=== PATIENT | male | born 1965 | race Caucasian/White ===

== ENCOUNTER 2019-07-25 04:19 | Inpatient (IN) | payer MEDICAID, OTHER ==
[~2019-07-25] VITALS: Ht 170.2 cm; Wt 164.6 kg
[2019-07-25 05:09] LABS: Basophils # (auto) 0.1 10 ^3/uL (0-0.2); Eosinophils # (auto) 0.6 10 ^3/uL (0-0.8); Mean Corpuscular Hgb Conc. 33.4 g/dL (32.0-36.0); Monocytes # (auto) 0.6 10 ^3/uL (0-1.3)
[2019-07-25 05:11] LABS: Hematocrit 49.7 % (41.0-53.0); Hemoglobin 16.6 g/dL (13.5-17.5); Lymphocytes # (auto) 1.9 10 ^3/uL (0.4-5.4); Mean Corpuscular Hemoglobin 27.2 pg (28.0-32.0); Mean Corpuscular Volume 81.6 fL (80.0-100.0); Monocytes % (auto) 7.1 % (0.0-12.0); Neutrophils # (auto) 4.9 10 ^3/uL (1.6-8.6); Neutrophils % (auto) 60.9 % (37.0-80.0); Nucleated Red Blood Cells % 0.1 %; Platelet Count (auto) 229 10^3/uL (140-450); Red Cell Distribution Width 16.7 % (11.8-14.3); White Blood Cell 8.1 10^3/uL (4.4-10.8)
[2019-07-25] MEDS ORDERED: cloNIDine HCL 0.1 MG TAB PO ONE (05:15)
[2019-07-25 05:28] LABS: INR 1.14 (0.9-1.15); Partial Thromboplastin Time 29.5 sec (23.64-32.05)
[2019-07-25 05:46] LABS: Albumin 2.4 g/dL (3.4-5.0); Calcium 8.6 mg/dL (8.5-10.1); Magnesium 1.8 mg/dL (1.6-2.6); Potassium 3.7 mmol/L (3.5-5.1)
[2019-07-25 05:53] LABS: BUN/Creatinine Ratio 12.4; Bilirubin, Total 0.4 mg/dL (0.2-1.0); Total Protein 7.3 g/dL (6.4-8.2)
[2019-07-25] MEDS ORDERED: ENOXAPARIN SOD 150 MG/1 ML SYRINGE SC ONE (06:15)
[2019-07-25] MEDS ORDERED: IOHEXOL 350 MG/ML 100ML IJ ONE (07:36)
[2019-07-25] MEDS ORDERED: ACETAMINOPHEN 500 MG TAB PO PRN (10:00)
[2019-07-25] MEDS ORDERED: TEMAZEPAM 15 MG CAP PO PRN (10:00)
[2019-07-25] MEDS ORDERED: DEXTROSE (50%) 50ML SYRG IV PRN (10:00)
[2019-07-25] MEDS ORDERED: NITROGLYCERIN 0.4 MG SL TAB SL PRN (10:00)
[2019-07-25] MEDS ORDERED: MORPHINE SULF INJ 2 MG/ML SYRINGE 1ML IV PRN (10:00)
[2019-07-25] MEDS ORDERED: PROMETHAZINE HCL 25 MG/ML 1ML IV PRN (10:00)
[2019-07-25] MEDS ORDERED: ENALAPRIL MALEATE 10 MG TAB PO SCH (10:00)
[2019-07-25] MEDS ORDERED: LACTULOSE 20Gm/30ML SOLN PO PRN (10:00)
[2019-07-25] MEDS ORDERED: traMADol HCL 50 MG TAB PO PRN (10:00)
[2019-07-25] MEDS ORDERED: cefTRIAXone 1GM/50ML D5W 50 ML IV ONE (10:15)
[2019-07-25] MEDS: NITROGLYCERIN 0.2MG/HR TOPICAL PATCH TD SCH (10:27)
[2019-07-25] MEDS: ASPirin 81 mg TAB PO SCH (10:27)
[2019-07-25] MEDS: METOPROLOL TARTRATE 25 MG TAB PO SCH ×2 (10:27→22:19)
[2019-07-25] MEDS: ENOXAPARIN SOD 40 MG/0.4 ML SYRINGE SC SCH (10:27)
[2019-07-25] MEDS ORDERED: LEVOTHYROXINE SODIUM 25 MCG TAB PO ONE (10:45)
--- NOTE | 2019-07-25 11:06 | NUR ---
Telemetry admit from [facility] admitted to Telemetry unit after SBAR received from MARQUEZ Phan. Patient oriented to LULA CHAUDHARI RN primary RN, unit, room, bed, and unit policies regarding patient care and visiting hours. Patient now on continuous telemetry monitoring, tele box #77 and telemetry reading on arrival to unit is NSR @ 77bpm. Patient weighed by bedscale and encouraged to call if they need something. Bed in lowest/locked position, bed rails up x2, call light within reach. All questions and concerns addressed, patient verbalized understanding.
[2019-07-25 11:39] VITALS: BP 164/95
[2019-07-25] MEDS ORDERED: ENALAPRILAT 1.25 MG/ML-1ML VIAL IV ONE (12:00)
[2019-07-25] MEDS: InsuLIN REG 1unit/0.01ml Soln (100units/ml) SC SCH ×3 (12:17→21:52)
[2019-07-25] MEDS: ACCU-CHEK COMFORT CURVE STRIP VI SCH ×3 (12:18→21:47)
[2019-07-25] MEDS: SODIUM CHLOR 0.9% PF (SALINE LOCK) 10ML VIAL/SYR IV SCH ×2 (12:56→22:20)
[2019-07-25] MEDS: CLINDAMYCIN 600MG IV 50 ML IV SCH ×2 (12:56→22:19)
[2019-07-25 13:00] VITALS: BP 164/95
--- NOTE | 2019-07-25 13:10 | NUR ---
LAB MRSA SWAB SENT
[2019-07-25 17:00] VITALS: BP 145/103
[2019-07-25] MEDS ORDERED: LISINOPRIL 5 MG TAB PO ONE (18:00)
[2019-07-25 22:00] VITALS: BP 154/99
[2019-07-25] MEDS: ATORVASTATIN 20 MG TAB PO SCH (22:15)
--- NOTE | 2019-07-26 03:55 | NUR ---
PATIENT SLEEPING WELL.
[2019-07-26 05:00] VITALS: BP 158/95
[2019-07-26] MEDS: CLINDAMYCIN 600MG IV 50 ML IV SCH ×3 (05:26→21:15)
[2019-07-26] MEDS: SODIUM CHLOR 0.9% PF (SALINE LOCK) 10ML VIAL/SYR IV SCH ×3 (05:27→21:37)
[2019-07-26 05:34] LABS: Basophils # (auto) 0.1 10 ^3/uL (0-0.2); Eosinophils # (auto) 0.5 10 ^3/uL (0-0.8); Eosinophils % (auto) 6.7 % (0.0-7.0); Hematocrit 46.5 % (41.0-53.0); Hemoglobin 15.4 g/dL (13.5-17.5); Lymphocytes # (auto) 2.3 10 ^3/uL (0.4-5.4); Lymphocytes % (auto) 32.2 % (10.0-50.0); Mean Corpuscular Volume 81.6 fL (80.0-100.0); Monocytes # (auto) 0.6 10 ^3/uL (0-1.3); Monocytes % (auto) 8.4 % (0.0-12.0); Neutrophils # (auto) 3.7 10 ^3/uL (1.6-8.6); Neutrophils % (auto) 51.7 % (37.0-80.0); Nucleated Red Blood Cells % 0.1 %; Platelet Count (auto) 205 10^3/uL (140-450); Red Cell Distribution Width 16.5 % (11.8-14.3); White Blood Cell 7.2 10^3/uL (4.4-10.8)
[2019-07-26 05:55] LABS: Albumin 2.2 g/dL (3.4-5.0); Calcium 8.4 mg/dL (8.5-10.1); Potassium 3.7 mmol/L (3.5-5.1)
[2019-07-26 06:00] LABS: BUN/Creatinine Ratio 13.5; Bilirubin, Total 0.4 mg/dL (0.2-1.0); Total Protein 6.6 g/dL (6.4-8.2)
[2019-07-26] MEDS: LEVOTHYROXINE SODIUM 25 MCG TAB PO SCH (06:26)
[2019-07-26] MEDS: ACCU-CHEK COMFORT CURVE STRIP VI SCH ×4 (06:37→21:35)
[2019-07-26] MEDS: InsuLIN REG 1unit/0.01ml Soln (100units/ml) SC SCH ×4 (06:38→21:37)
--- NOTE | 2019-07-26 07:30 | NUR ---
Opening Shift Note Assumed care of patient, awake, alert, and oriented. No S/S of distress/SOB or pain. Bed in lowest/locked position, bed rails up x2, call light within reach. Instructed on POC and to call for assist PRN. Will continue to monitor for changes Q1hr and PRN.
[2019-07-26] MEDS ORDERED: ADENOSINE IV STA (08:29)
[2019-07-26] MEDS ORDERED: GIVE UN DILUTED IV STA (08:29)
[2019-07-26 09:00] VITALS: BP 166/93
[2019-07-26] MEDS: cefTRIAXone 1GM/50ML D5W 50 ML IV SCH (09:00)
[2019-07-26] MEDS: ENALAPRILAT 1.25 MG/ML-1ML VIAL IV PRN ×2 (09:40→17:11)
[2019-07-26] MEDS: NITROGLYCERIN 0.2MG/HR TOPICAL PATCH TD SCH (10:00)
[2019-07-26] MEDS ORDERED: LISINOPRIL 5 MG TAB PO SCH (10:00)
[2019-07-26] MEDS: METOPROLOL TARTRATE 25 MG TAB PO SCH ×2 (11:32→21:16)
[2019-07-26] MEDS: ENOXAPARIN SOD 40 MG/0.4 ML SYRINGE SC SCH (11:32)
[2019-07-26] MEDS: ASPirin 81 mg TAB PO SCH (11:32)
[2019-07-26] MEDS: SOD CHL 0.45% 1,000 ML IV SCH ×2 (11:48→23:50)
[2019-07-26 13:00] VITALS: BP 166/74
--- NOTE | 2019-07-26 13:20 | NUR ---
LAB URINE SAMPLE SENT TO LAB PER MD ORDERS
[2019-07-26 13:35] LABS: Urine Bacteria NONE SEEN /hpf (None Seen); Urine Blood TRACE /uL (Negative); Urine Specific Gravity 1.012 (1.001-1.035); Urine WBC 1 /hpf (0 - 3)
[2019-07-26 13:50] LABS: Alcohol, Urine < 3.0 mg/dL (0-5); Amphetamine Screen, Urine POSITIVE (NEGATIVE); Barbiturate Scree,Urine NEGATIVE (NEGATIVE); Benzodiazephine Screen, Urine NEGATIVE (NEGATIVE); Cannabinoid Screen, Urine NEGATIVE (NEGATIVE); Cocaine Screen, Urine NEGATIVE (NEGATIVE); Opiate Scree,Urine NEGATIVE (NEGATIVE); Phencyclidine Screen, Urine NEGATIVE (NEGATIVE)
[2019-07-26] MEDS ORDERED: OPTISON 3ml Vial for INJ IV ONE (14:55)
[2019-07-26 17:00] VITALS: BP 166/127
[2019-07-26] MEDS: cloNIDine HCL 0.1 MG TAB PO ONE ×2 (17:58→18:08)
--- NOTE | 2019-07-26 18:17 | NUR ---
BLOOD PRESSURE PATIENT B/P 166/127 AT 1700. MEDICATED PER MD ORDERS. REASSESSED PATIENT B/P 195/100. INFORMED MD, MEDICATED PER ORDER. WILL CONTINUE TO MONITOR
--- NOTE | 2019-07-26 18:19 | NUR ---
ULTRASOUND SPOKE WITH GAIL IN ULTRASOUND RE: PATIENT RENAL US. PER GAIL, PATIENT NEEDS TO BE NPO AND US TECH WILL BE BACK IN THE AM.
--- NOTE | 2019-07-26 18:46 | NUR ---
B/P REASSESS REASSESSMENT OF B/P 194/110. MD AWARE. PATIENT HAS RECEIVED BOTH PRN MEDS ORDERED. IV FLUIDS STOPPED. WILL CONTINUE TO MONITOR
--- NOTE | 2019-07-26 20:00 | NUR ---
Opening Shift Note Assumed care of patient, awake and alert. No S/S of distress/SOB or pain. Instructed on POC and to call for assist PRN, will continue to monitor for changes Q1hr and PRN.Requested gello for snack, given sugar free gello.
[2019-07-26] MEDS: ATORVASTATIN 20 MG TAB PO SCH (21:16)
[2019-07-26] MEDS: FLORASTOR (S. BOULARDII) 250 MG CAP PO SCH (21:34)
[2019-07-26 22:27] VITALS: BP 168/96
--- NOTE | 2019-07-27 01:09 | NUR ---
Complained of pain in the right foot and requested to removed the brown elastic dressing,said it caused him pain medicated with ultram 50mg.p.o for pain level of 5/10.
[2019-07-27 05:11] VITALS: BP 130/73
[2019-07-27] MEDS: CLINDAMYCIN 600MG IV 50 ML IV SCH ×3 (05:45→21:42)
[2019-07-27] MEDS: SODIUM CHLOR 0.9% PF (SALINE LOCK) 10ML VIAL/SYR IV SCH ×3 (05:45→21:46)
[2019-07-27] MEDS: ACCU-CHEK COMFORT CURVE STRIP VI SCH ×4 (05:46→21:47)
[2019-07-27] MEDS: InsuLIN REG 1unit/0.01ml Soln (100units/ml) SC SCH ×4 (05:46→21:48)
[2019-07-27] MEDS: LEVOTHYROXINE SODIUM 25 MCG TAB PO SCH (05:46)
[2019-07-27 06:01] LABS: Basophils # (auto) 0.1 10 ^3/uL (0-0.2); Basophils % (auto) 0.9 % (0.0-2.0); Eosinophils # (auto) 0.4 10 ^3/uL (0-0.8); Eosinophils % (auto) 7.3 % (0.0-7.0); Hematocrit 44.1 % (41.0-53.0); Hemoglobin 14.7 g/dL (13.5-17.5); Lymphocytes # (auto) 2.2 10 ^3/uL (0.4-5.4); Lymphocytes % (auto) 35.4 % (10.0-50.0); Mean Corpuscular Hemoglobin 27.2 pg (28.0-32.0); Mean Corpuscular Hgb Conc. 33.2 g/dL (32.0-36.0); Mean Corpuscular Volume 81.7 fL (80.0-100.0); Monocytes # (auto) 0.5 10 ^3/uL (0-1.3); Monocytes % (auto) 8.5 % (0.0-12.0); Neutrophils # (auto) 2.9 10 ^3/uL (1.6-8.6); Neutrophils % (auto) 47.9 % (37.0-80.0); Nucleated Red Blood Cells % 0.5 %; Platelet Count (auto) 197 10^3/uL (140-450); Red Cell Distribution Width 16.4 % (11.8-14.3); White Blood Cell 6.1 10^3/uL (4.4-10.8)
[2019-07-27 06:05] LABS: Albumin 2.2 g/dL (3.4-5.0); Calcium 8.3 mg/dL (8.5-10.1); Potassium 3.5 mmol/L (3.5-5.1)
[2019-07-27 06:07] LABS: BUN/Creatinine Ratio 16.5
[2019-07-27 06:10] LABS: Bilirubin, Total 0.3 mg/dL (0.2-1.0); Total Protein 6.2 g/dL (6.4-8.2)
--- NOTE | 2019-07-27 07:24 | NUR ---
Report given to Nasra Trevizo, patient is NPO for renal ultrasound.
--- NOTE | 2019-07-27 07:30 | NUR ---
RECEIVED REPORT FROM NIGHT NURSE. PATIENT RESTING IN BED, NO DISTRESS NOTED. PATIENT NPO FOR TEST. WILL CONTINUE TO MONITOR.
[2019-07-27 09:05] VITALS: BP 134/91
[2019-07-27] MEDS: NITROGLYCERIN 0.2MG/HR TOPICAL PATCH TD SCH (10:00)
[2019-07-27] MEDS: cefTRIAXone 1GM/50ML D5W 50 ML IV SCH (10:59)
[2019-07-27] MEDS: ASPirin 81 mg TAB PO SCH (10:59)
[2019-07-27] MEDS: FLORASTOR (S. BOULARDII) 250 MG CAP PO SCH ×2 (10:59→21:46)
[2019-07-27] MEDS: ENOXAPARIN SOD 40 MG/0.4 ML SYRINGE SC SCH (10:59)
[2019-07-27] MEDS: METOPROLOL TARTRATE 25 MG TAB PO SCH ×2 (11:00→21:46)
[2019-07-27] MEDS: ENALAPRIL MALEATE 10 MG TAB PO SCH (11:01)
[2019-07-27 13:00] VITALS: BP 190/91
[2019-07-27] MEDS ORDERED: LORazepam 2MG/ML-1ML VIAL IV ONE (15:15)
[2019-07-27 16:56] VITALS: BP 150/61
--- NOTE | 2019-07-27 19:15 | NUR ---
Opening Shift Note Assumed care of patient, awake, alert and oriented x4, even and unlabored respirations, no S/S of distress/SOB or pain. Patient is able to turn independently, bed in lowest locked position, side rails up x2, call light within reach. Instructed on POC and to call for assist PRN, will continue to monitor for changes Q1hr and PRN.
[2019-07-27 21:00] VITALS: BP 172/90
[2019-07-27] MEDS: ATORVASTATIN 20 MG TAB PO SCH (21:46)
[2019-07-27] MEDS: cloNIDine HCL 0.1 MG TAB PO PRN (21:50)
[2019-07-28 04:30] VITALS: BP 144/93
[2019-07-28 05:12] LABS: BUN/Creatinine Ratio 15.9; Calcium 8.3 mg/dL (8.5-10.1); Potassium 3.9 mmol/L (3.5-5.1)
[2019-07-28] MEDS: SODIUM CHLOR 0.9% PF (SALINE LOCK) 10ML VIAL/SYR IV SCH ×3 (06:08→22:36)
[2019-07-28] MEDS: CLINDAMYCIN 600MG IV 50 ML IV SCH ×3 (06:08→22:35)
[2019-07-28] MEDS: LEVOTHYROXINE SODIUM 25 MCG TAB PO SCH (06:58)
[2019-07-28] MEDS: InsuLIN REG 1unit/0.01ml Soln (100units/ml) SC SCH ×4 (06:58→22:37)
[2019-07-28] MEDS: ACCU-CHEK COMFORT CURVE STRIP VI SCH ×4 (06:58→22:36)
--- NOTE | 2019-07-28 07:30 | NUR ---
Opening Shift Note RECEIVED REPORT FROM NOC RN. Assumed care of patient, awake and alert. No S/S of distress/SOB or pain. BED IN LOWEST, LOCKED POSITION WITH SIDERAILS UP x2 AND CALL LIGHT WITHIN REACH. Instructed on POC and to call for assist PRN, will continue to monitor for changes Q1hr and PRN.
[2019-07-28] MEDS: cefTRIAXone 1GM/50ML D5W 50 ML IV SCH (08:30)
[2019-07-28 09:00] VITALS: BP 137/98
[2019-07-28] MEDS: NITROGLYCERIN 0.2MG/HR TOPICAL PATCH TD SCH (09:54)
[2019-07-28] MEDS: FLORASTOR (S. BOULARDII) 250 MG CAP PO SCH ×2 (09:55→22:35)
[2019-07-28] MEDS: ASPirin 81 mg TAB PO SCH (09:55)
[2019-07-28] MEDS: METOPROLOL TARTRATE 25 MG TAB PO SCH ×2 (09:56→22:36)
[2019-07-28] MEDS: ENALAPRIL MALEATE 10 MG TAB PO SCH (09:56)
[2019-07-28] MEDS: ENOXAPARIN SOD 40 MG/0.4 ML SYRINGE SC SCH (09:56)
[2019-07-28 13:00] VITALS: BP 123/94
[2019-07-28 16:50] VITALS: BP 129/108
--- NOTE | 2019-07-28 19:10 | NUR ---
Opening Shift Note Assumed care of patient, awake, alert and oriented x4, even and unlabored respirations on room air, no S/S of distress/SOB or pain. Patient able to turn independently, bed in lowest locked position, side rails up x2, and call light within reach. Instructed on POC and to call for assist PRN, will continue to monitor for changes Q1hr and PRN.
[2019-07-28] MEDS: cloNIDine HCL 0.1 MG TAB PO PRN (21:01)
[2019-07-28 22:23] VITALS: BP 211/97
[2019-07-28] MEDS: ATORVASTATIN 20 MG TAB PO SCH (22:36)
[2019-07-29] MEDS ORDERED: cloNIDine HCL 0.1 MG TAB PO ONE (00:30)
[2019-07-29] MEDS ORDERED: SODIUM CHLORIDE 0.9% 1,000 ML IV ONE ×2 (01:30→06:00)
[2019-07-29] MEDS: SODIUM CHLOR 0.9% PF (SALINE LOCK) 10ML VIAL/SYR IV SCH ×3 (05:30→23:56)
[2019-07-29] MEDS: CLINDAMYCIN 600MG IV 50 ML IV SCH ×3 (05:30→21:49)
[2019-07-29 05:52] VITALS: BP 157/89
[2019-07-29] MEDS: ACCU-CHEK COMFORT CURVE STRIP VI SCH ×4 (06:42→21:52)
[2019-07-29] MEDS: InsuLIN REG 1unit/0.01ml Soln (100units/ml) SC SCH ×4 (06:42→21:50)
[2019-07-29] MEDS: LEVOTHYROXINE SODIUM 25 MCG TAB PO SCH (06:42)
--- NOTE | 2019-07-29 08:05 | NUR ---
RECEIVED CALL FROM MOTOR COACH CHAUFFEUR (FLEX) PROCEDURE HAS BEEN CANCELLED DUE TO PT'S WEIGHT AND MOTOR COACH CHAUFFEUR BED LIMIT. PT MADE AWARE OF PLAN.
[2019-07-29 09:00] VITALS: BP 182/81
[2019-07-29] MEDS: METOPROLOL TARTRATE 25 MG TAB PO SCH ×2 (09:37→21:50)
[2019-07-29] MEDS: FLORASTOR (S. BOULARDII) 250 MG CAP PO SCH ×2 (09:38→21:49)
[2019-07-29] MEDS: ENALAPRIL MALEATE 10 MG TAB PO SCH (09:38)
[2019-07-29] MEDS: NITROGLYCERIN 0.2MG/HR TOPICAL PATCH TD SCH (09:38)
[2019-07-29] MEDS: cloNIDine HCL 0.1 MG TAB PO PRN ×2 (09:38→18:23)
[2019-07-29] MEDS: ASPirin 81 mg TAB PO SCH (09:39)
[2019-07-29] MEDS: cefTRIAXone 1GM/50ML D5W 50 ML IV SCH (09:39)
[2019-07-29] MEDS: ENOXAPARIN SOD 40 MG/0.4 ML SYRINGE SC SCH (09:40)
[2019-07-29 13:00] VITALS: BP 142/85
--- NOTE | 2019-07-29 14:25 | NUR ---
Faxed higher level of care transfer order to [facility].
--- NOTE | 2019-07-29 14:34 | NUR ---
NUTRITION ASSESSMENT NOTES Please refer to link notes of nutrition screen form filed under the intervention section of the plan of care for further details. Est. Energy Needs: 0122-9997 kcal (12-15 kcal/kg BW). Est. Protein Needs: 91-109 gms/day (1.0-1.2 gms/kg Adj.BW). Will continue to monitor pertinent labs and reassess nutrient need prn Addendum: 07/29/19 at [address] Amended: Links added.
--- NOTE | 2019-07-29 14:43 | NUR ---
I received a call from the [facility] Transfer center-provided them with additional clinical information as requested-she will give me a call back.
--- NOTE | 2019-07-29 15:06 | NUR ---
I spoke with patient's nurse Charlie, patient's abdominal girth is 41 inches.
--- NOTE | 2019-07-29 16:09 | NUR ---
CLARY FROM [facility] CALLED. QUESTIONS AND CONCERNS ADDRESSED. CLARY STATED SHE WILL FOLLOW UP.
[2019-07-29 16:57] VITALS: BP 182/94
--- NOTE | 2019-07-29 19:35 | NUR ---
Opening note pt A&Ox4. respirations are even and non labored on room air. pt denies pain or discomfort. bed in low locked position, call light within reach.
[2019-07-29 21:21] VITALS: BP 139/77
[2019-07-29] MEDS: ATORVASTATIN 20 MG TAB PO SCH (21:49)
[2019-07-30 05:37] VITALS: BP 134/75
[2019-07-30] MEDS: CLINDAMYCIN 600MG IV 50 ML IV SCH ×3 (05:43→21:21)
[2019-07-30] MEDS: LEVOTHYROXINE SODIUM 25 MCG TAB PO SCH (06:28)
[2019-07-30] MEDS: ACCU-CHEK COMFORT CURVE STRIP VI SCH ×4 (06:28→21:36)
[2019-07-30] MEDS: SODIUM CHLOR 0.9% PF (SALINE LOCK) 10ML VIAL/SYR IV SCH ×3 (06:29→21:25)
[2019-07-30] MEDS: InsuLIN REG 1unit/0.01ml Soln (100units/ml) SC SCH ×4 (06:29→21:36)
--- NOTE | 2019-07-30 07:15 | NUR ---
closing note pt resting in right lateral position. respirations are even and non labored on 2lnc. no s/s of pain or discomfort. bed is in low locked position, call light within reach.
--- NOTE | 2019-07-30 08:39 | NUR ---
I called [facility] Transfer Center [phone] and spoke with Waylon, he said they are not contracted with patient's insurance-they would need an AUGUSTIN to accept this patient. I called [facility] [phone] and left message for Harnessmaker Apprentice Mo asking for a list of contracted facilities and asking if they would do an AUGUSTIN with Adelina Gould-awaiting return call.
[2019-07-30 09:00] VITALS: BP 121/63
[2019-07-30] MEDS: FLORASTOR (S. BOULARDII) 250 MG CAP PO SCH ×2 (09:48→21:22)
[2019-07-30] MEDS: ENALAPRIL MALEATE 10 MG TAB PO SCH (09:48)
[2019-07-30] MEDS: cefTRIAXone 1GM/50ML D5W 50 ML IV SCH (09:48)
[2019-07-30] MEDS: ASPirin 81 mg TAB PO SCH (09:48)
[2019-07-30] MEDS: METOPROLOL TARTRATE 25 MG TAB PO SCH ×2 (09:49→21:34)
[2019-07-30] MEDS: ENOXAPARIN SOD 40 MG/0.4 ML SYRINGE SC SCH (09:49)
[2019-07-30] MEDS: NITROGLYCERIN 0.2MG/HR TOPICAL PATCH TD SCH (09:49)
--- NOTE | 2019-07-30 10:57 | NUR ---
I spoke with Dr. Chan regarding the plan of care for this patient-he requested that I reach out to [facility]. I called [facility] [phone] and spoke with material handling warehouse supervisor Natalie-she requested that I fax her clinical information-she will call me back to let me know if they can accommodate this patient. Faxed requested clinical information to [phone].
[2019-07-30] MEDS: SODIUM CHLORIDE 0.9% 1,000 ML IV SCH (11:31)
--- NOTE | 2019-07-30 11:53 | NUR ---
I spoke with [facility] Charter Pilot Mo ([phone]) regarding the transfer of this patient. Per Mo when there is an accepting facility, she will give authorization number for [facility]. Per Mo, they are contracted with [facility]-I let her know that I am waiting for them to call me back. She said they would be willing to do an AUGUSTIN for [facility] if [facility] is unable to accommodate the patient.
[2019-07-30 12:14] LABS: BUN/Creatinine Ratio 12.4; Potassium 4.1 mmol/L (3.5-5.1)
[2019-07-30 13:00] VITALS: BP 170/81
[2019-07-30] MEDS: cloNIDine HCL 0.1 MG TAB PO PRN ×3 (14:27→22:35)
--- NOTE | 2019-07-30 15:32 | NUR ---
assessment Patient is a 53 year old male who is alert and oriented. Prior to admission patient informed me he rented a room from a friend. Per patient he has a wheelchair for home use. Patient informed me his mother helps him at home when needed. Patient has no PCP. Coby Pascual to see patient for PCP. Patient is aware of his transfer order. Patient agrees to transfer. I informed patient he has a right to participate in any and all discharge planning. Patient does not have a POA and advanced directive. I have offered patient information on POA and advanced directives. I informed the patient the advantages and benefits of having an Advanced Directive. Patient verbalized understanding and agreed to discharge plan. Addendum: 07/30/19 at 1542 by Coby VERA Amended: Links added.
[2019-07-30 16:44] VITALS: BP 158/84
--- NOTE | 2019-07-30 20:00 | NUR ---
Opening Shift Note Assumed care of patient, awake and alert. No S/S of distress/SOB or pain. Instructed on POC and to call for assist PRN, will continue to monitor for changes Q1hr and PRN.Given gello sugar free as requested.
[2019-07-30] MEDS: ATORVASTATIN 20 MG TAB PO SCH (21:22)
[2019-07-30 22:00] VITALS: BP 160/80
--- NOTE | 2019-07-30 22:00 | NUR ---
Sara from [facility] called and asking if the patient still waiting for the transfer and said no bed available bed yet and case fitter to call tomorrow.
[2019-07-31] MEDS: SODIUM CHLORIDE 0.9% 1,000 ML IV SCH ×2 (00:05→13:40)
[2019-07-31 05:00] VITALS: BP 131/75
[2019-07-31] MEDS: CLINDAMYCIN 600MG IV 50 ML IV SCH ×2 (05:41→13:38)
[2019-07-31] MEDS: SODIUM CHLOR 0.9% PF (SALINE LOCK) 10ML VIAL/SYR IV SCH ×2 (05:41→14:35)
[2019-07-31] MEDS: LEVOTHYROXINE SODIUM 25 MCG TAB PO SCH (06:20)
[2019-07-31] MEDS: ACCU-CHEK COMFORT CURVE STRIP VI SCH ×2 (06:21→14:35)
[2019-07-31] MEDS: InsuLIN REG 1unit/0.01ml Soln (100units/ml) SC SCH ×2 (06:27→14:36)
--- NOTE | 2019-07-31 07:41 | NUR ---
Report given to Nasra Rubio, patient is resting no distress, awaiting transfer to high level of care, and told Nasra to tell the case hardener to call [facility] as per Sara from [facility].
--- NOTE | 2019-07-31 07:45 | NUR ---
Opening Shift Note Assumed care of patient, who is alert and oriented x4. No S/S of distress/SOB or pain. Bed is low, locked with 2x rails up. Call light is within reach. Instructed on POC and to call for assist PRN, will continue to monitor for changes Q1hr and PRN.
[2019-07-31 08:00] VITALS: BP 149/63
[2019-07-31] MEDS: cefTRIAXone 1GM/50ML D5W 50 ML IV SCH (09:09)
[2019-07-31] MEDS: ENOXAPARIN SOD 40 MG/0.4 ML SYRINGE SC SCH (09:12)
[2019-07-31] MEDS: NITROGLYCERIN 0.2MG/HR TOPICAL PATCH TD SCH (09:13)
[2019-07-31] MEDS: FLORASTOR (S. BOULARDII) 250 MG CAP PO SCH (09:14)
[2019-07-31] MEDS: ASPirin 81 mg TAB PO SCH (09:14)
[2019-07-31] MEDS: METOPROLOL TARTRATE 25 MG TAB PO SCH (09:15)
--- NOTE | 2019-07-31 09:25 | NUR ---
I called [facility] [phone] and spoke with warehouse delivery manager Natalie (no return call from her yesterday). Per Natalie she did not receive H&P on patient (it was faxed yesterday with confirmed receipt that fax went through). I re-faxed H&P and current MD progress notes to her as requested. I asked if they can accommodate patient's size/weight-she said "I don't know-I will have to get back to you". Also provided her with contact information for Dr. Chan and the nurse's station.
--- NOTE | 2019-07-31 09:35 | NUR ---
I spoke with Ramona at the [facility] Transfer Center, she said they are not able to accept this patient today-to check back tomorrow.
--- NOTE | 2019-07-31 09:39 | NUR ---
I called [facility] and spoke with Flying Squad Salesperson Brad to let her know that [facility] can not accept this patient today, and that [facility] can not give me a straight answer as to whether or not they can accommodate this patient. Per Brad, reach out to [facility] and [facility]-they will do an AUGUSTIN if necessary.
--- NOTE | 2019-07-31 09:50 | NUR ---
I called the [facility] Transfer Center [phone] and left a message asking if they can accommodate this patient.
[2019-07-31] MEDS ORDERED: ENALAPRIL MALEATE 10 MG TAB PO SCH (10:00)
--- NOTE | 2019-07-31 10:14 | NUR ---
I called the [facility] Transfer Center [phone] and spoke with Maged regarding this patient's need for transfer to higher level of care for heart cath. Per Maged, their cardiac cath table can hold up to 400 pounds. I provided him with contact information for Dr. Chan as well as the nurse's station. Faxed requested clinical documentation to [phone]. I let Maged know that [facility] is willing to do an AUGUSTIN.
--- NOTE | 2019-07-31 11:01 | NUR ---
I received a call from Gaby at the [facility]-provided her with requested contact information for Business Development Intern Brad at [facility] ([phone]).
--- NOTE | 2019-07-31 11:38 | NUR ---
I received a call from Maged at the [facility] Transfer Center-faxed him requested troponin trend from 07/24 and stress test report to [phone]. He said his MD spoke with Dr. Chan-he will give me a call back to let me know if they are accepting this patient-he said if they do accept, they may require that patient be tested for CO-VID 19 prior to transfer.
[2019-07-31 12:43] VITALS: BP 165/69
--- NOTE | 2019-07-31 13:54 | NUR ---
I received a call form Maged at the [facility] Transfer Center letting me know that they are declining this patient for transfer because their MD's do not think it is an urgent situation.
[2019-07-31 15:23] VITALS: BP 165/69
--- NOTE | 2019-07-31 16:29 | NUR ---
Discharge instructions given as ordered. Encourage to follow up with PMD as instructed. Provided patient with Dr. Arambula information to schedule a follow up appointment. Reinforced teaching on weight management in order for LHC to be done in 3-4 weeks. All questions and concerns addressed. Patient verbalized understanding. IV removed with catheter intact, pressure dressing applied. Telemetry unit returned to ICU. Patient taken to vehicle via wheelchair with all personal belongings, accompanied by staff. No distress noted at time of departure.
== END 2019-07-31 16:29 | disposition home or self-care (01) | DRG 190 ==
LOC: ER 04:19 → EEVIPCON 04:19 → TELE 04:20 → TELE-WESTW 11:12
PROVIDERS: ADMIT Internal Medicine; ATTEND Internal Medicine
DX: I21.4 Non-ST elevation (NSTEMI) myocardial infarction (principal); I50.31 Acute diastolic (congestive) heart failure; E11.51 Type 2 diabetes mellitus with diabetic peripheral angiopathy without gangrene; E11.621 Type 2 diabetes mellitus with foot ulcer; E66.01 Morbid (severe) obesity due to excess calories; L03.115 Cellulitis of right lower limb; E11.65 Type 2 diabetes mellitus with hyperglycemia; I16.1 Hypertensive emergency; I99.8 Other disorder of circulatory system; L40.9 Psoriasis, unspecified; I25.10 Atherosclerotic heart disease of native coronary artery without angina pectoris; I87.2 Venous insufficiency (chronic) (peripheral); E11.69 Type 2 diabetes mellitus with other specified complication; I13.0 Hypertensive heart and chronic kidney disease with heart failure and stage 1 through stage 4 chronic kidney disease, or unspecified chronic kidney disease; L03.116 Cellulitis of left lower limb; I16.0 Hypertensive urgency; L85.3 Xerosis cutis; M86.8X7 Other osteomyelitis, ankle and foot; L97.509 Non-pressure chronic ulcer of other part of unspecified foot with unspecified severity; N18.2 Chronic kidney disease, stage 2 (mild); Z68.43 Body mass index [BMI] 50.0-59.9, adult; Z59.0 Homelessness; Z79.01 Long term (current) use of anticoagulants; Z91.19 Patient's noncompliance with other medical treatment and regimen; Z79.84 Long term (current) use of oral hypoglycemic drugs; Z90.49 Acquired absence of other specified parts of digestive tract; Z79.899 Other long term (current) drug therapy
CPT/HCPCS: 36415; 71045; 73630; 75635; 78452; 80048; 80053; 80061; 80307; 81001; 82550; 82962; 83036; 83735; 83880; 84443; 84484; 85025; 85379; 85610; 85652; 85730; 87081; 93005; 93017; 93306; 93975; 96365; 96372; 99291; G0378; J0153; J0696; J1815; J3490; Q9956

== ENCOUNTER 2023-05-23 13:54 | Inpatient (IN) | payer MEDICAID ==
[~2023-05-23] VITALS: Ht 177.8 cm; Wt 135.0 kg
[2023-05-23] VITALS (12 sets, daily range): BP systolic 85–133; BP diastolic 30–75; PULSE 18–120; RESP 10–38; TEMP 98.5–103.3; O2SAT 93–97
[~2023-05-23 13:54] MED LIST: AUG875T PO
[2023-05-23 14:33] LABS: Base Excess -1.3 mmol/L (-2.0-2.0)
[2023-05-23] MEDS: PIPERACILLIN-TAZOB 3.375GM 100 ML IV ONE (14:37)
[2023-05-23] MEDS: NOREPINEPHRINE 8 MG/250ML KIT 250 ML IV ONE ×2 (15:05→22:14)
[2023-05-23 15:17] LABS: Basophils # (auto) 0 10 ^3/uL (0-0.2); Basophils % (auto) 0.2 % (0.0-2.0); Eosinophils # (auto) 0 10 ^3/uL (0-0.8); Hematocrit 30.1 % (41.0-53.0); Hemoglobin 9.8 g/dL (13.5-17.5); Lymphocytes # (auto) 0.2 10 ^3/uL (0.4-5.4); Lymphocytes % (auto) 3.1 % (10.0-50.0); Mean Corpuscular Hgb Conc. 32.7 g/dL (32.0-36.0); Mean Corpuscular Volume 91.7 fL (80.0-100.0); Monocytes # (auto) 0.3 10 ^3/uL (0-1.3); Monocytes % (auto) 4.3 % (0.0-12.0); Neutrophils # (auto) 7.1 10 ^3/uL (1.6-8.6); Neutrophils % (auto) 92.4 % (37.0-80.0); Red Blood Cells 3.28 10^6/uL (4.5-5.90); Red Cell Distribution Width 14.5 % (11.8-14.3); White Blood Cell 7.7 10^3/uL (4.4-10.8)
[2023-05-23] MEDS: ALBUTEROL SULF 2.5 MG/0.5ML(0.5%) NEB SOLN NEB ONE (15:17)
[2023-05-23] MEDS: IPRATROPIUM BROM 0.5 MG/2.5ML INH SOL NEB ONE (15:17)
[2023-05-23] MEDS: methylPREDNISolone SOD SUCC 125 MG/2 ML VL IV ONE (15:20)
[2023-05-23 15:34] LABS: Alanine Aminotransferase 29 U/L (7-40); Alkaline Phosphatase 78 U/L (46-116); Anion Gap 13 (5-15); BUN/Creatinine Ratio 9.4 (10.0-20.0); Carbon Dioxide 22 mmol/L (20-30); Chloride 97 mmol/L (98-107); Glucose 156 mg/dL (74-106); Magnesium 1.9 mg/dL (1.6-2.6); Potassium 5.2 mmol/L (3.5-5.1); Sodium 132 mmol/L (136-145)
[2023-05-23 15:35] LABS: Albumin 3.1 g/dL (3.2-4.8); Aspartate Aminotransferase 46 U/L (13-40); Total Protein 5.8 g/dL (5.7-8.2)
[2023-05-23 15:55] LABS: Blood Urea Nitrogen 96 mg/dL (9-23)
[2023-05-23 15:58] LABS: Lactic Acid w/Reflex 2.5 mmol/L (0.4-2.0)
[2023-05-23 16:39] LABS: Anisocytosis Slight; Platelet Estimate Decreased
[2023-05-23] MEDS ORDERED: ONDANSETRON HCL 4 MG/2 ML VIAL IV PRN (17:45)
[2023-05-23] MEDS ORDERED: SODIUM BICARB 8.4% 50Meq/50ml SYR INJ IV ONE (17:45)
[2023-05-23] MEDS ORDERED: MORPHINE SULFATE INJ 2 MG/ml SYRG IV PRN ×3 (17:45→18:00)
[2023-05-23] MEDS ORDERED: NITROGLYCERIN 0.4 MG SL TAB SL PRN ×2 (17:45→18:00)
[2023-05-23] MEDS ORDERED: ACETAMINOPHEN IV 1000 MG/100ML (10MG/ML) IV ONE (17:45)
[2023-05-23] MEDS ORDERED: CALCIUM GLUC 1,000mg/50ml-NS 50 ML IV ONE (17:45)
[2023-05-23] MEDS ORDERED: VASOPRESSIN 20 UNITS in SODIUM CHL 0.9% 99 ML IV SCH (17:45)
[2023-05-23] MEDS ORDERED: ALBUTEROL SULF 2.5 MG/0.5ML(0.5%) NEB SOLN NEB SCH (18:00)
[2023-05-23] MEDS ORDERED: IPRATROPIUM BROM 0.5 MG/2.5ML INH SOL NEB SCH (18:00)
[2023-05-23] MEDS ORDERED: SODIUM CHLORIDE 0.9% 500 ML IV ONE (18:15)
[2023-05-23] MEDS ORDERED: DEXTROSE (50%) 50ML SYRG IV PRN (18:30)
[2023-05-23] MEDS ORDERED: VANCOMYCIN PER PHARMACY 0 MG IV SCH (19:15)
[2023-05-23] MEDS: NOREPINEPHRINE 8 MG/250ML KIT 250 ML IV SCH (19:30)
[2023-05-23] MEDS ORDERED: LINEZOLID 600MG/300ML 300 ML IV SCH ×2 (20:00→22:00)
[2023-05-23] MEDS: VANCOMYCIN 1GM/200ML 200 ML IV ONE (20:01)
[2023-05-23] MEDS: VASOPRESSIN 20 UNITS in SODIUM CHL 0.9% 99 ML IV SCH (20:01)
[2023-05-23] MEDS: MIDAZOLAM DRIP 50 mg/50mL 50 ML IV SCH (20:01)
[2023-05-23] MEDS: ROCURONIUM 10MG/ML 10ML VIAL IV ONE ×2 (20:02)
[2023-05-23] MEDS: ETOMIDATE (2MG/ML) 20ML VIAL IV ONE ×2 (20:02)
[2023-05-23] MEDS: MIDAZOLAM DRIP 50 mg/50mL 50 ML IV ONE (20:02)
[2023-05-23] MEDS: CALCIUM GLUC 1,000mg/50ml-NS 50 ML IV ONE (20:25)
[2023-05-23] MEDS: SODIUM CHLORIDE 0.9% 500 ML IV ONE (20:33)
[2023-05-23] MEDS: SODIUM BICARB 8.4% 50Meq/50ml SYR INJ IV ONE (20:38)
[2023-05-23] MEDS: ACETAMINOPHEN IV 1000 MG/100ML (10MG/ML) IV ONE (20:51)
[2023-05-23 21:45] LABS: COVID19 ANTIGEN SOFIA FIA POSITIVE (NEGATIVE)
[2023-05-23] MEDS ORDERED: HEPARIN SODIUM (PORCINE) 5000 UNITS/ML 1ML VIAL SC SCH (22:00)
[2023-05-23] MEDS: CEFEPIME 1GM/ 50ML 50 ML IV SCH (22:14)
[2023-05-23 23:10] LABS: Basophils # (auto) 0 10 ^3/uL (0-0.2); Basophils % (auto) 0.4 % (0.0-2.0); Eosinophils # (auto) 0 10 ^3/uL (0-0.8); Eosinophils % (auto) 0.5 % (0.0-7.0); Hemoglobin 9.7 g/dL (13.5-17.5); Lymphocytes # (auto) 0.5 10 ^3/uL (0.4-5.4); Lymphocytes % (auto) 4.9 % (10.0-50.0); Mean Corpuscular Hemoglobin 29.6 pg (28.0-32.0); Mean Corpuscular Hgb Conc. 32.4 g/dL (32.0-36.0); Mean Corpuscular Volume 91.4 fL (80.0-100.0); Monocytes # (auto) 0.7 10 ^3/uL (0-1.3); Monocytes % (auto) 7.4 % (0.0-12.0); Neutrophils # (auto) 8.2 10 ^3/uL (1.6-8.6); Neutrophils % (auto) 86.8 % (37.0-80.0); Red Blood Cells 3.29 10^6/uL (4.5-5.90); Red Cell Distribution Width 14.5 % (11.8-14.3); White Blood Cell 9.4 10^3/uL (4.4-10.8)
[2023-05-23 23:17] LABS: Chloride 99 mmol/L (98-107); Potassium 5.5 mmol/L (3.5-5.1); Sodium 131 mmol/L (136-145)
[2023-05-23 23:18] LABS: Anion Gap 12 (5-15); Calcium 8.5 mg/dL (8.5-10.1); Carbon Dioxide 20 mmol/L (20-30)
[2023-05-23 23:23] LABS: BUN/Creatinine Ratio 8.5 (10.0-20.0)
[2023-05-23 23:32] LABS: Glucose 264 mg/dL (74-106)
[2023-05-23 23:34] LABS: Blood Urea Nitrogen 93 mg/dL (9-23)
[2023-05-23] MEDS: ACCU-CHEK COMFORT CURVE STRIP VI SCH (23:44)
[2023-05-23] MEDS: InsuLIN REG 1unit/0.01ml Soln (100units/ml) SC SCH (23:45)
[2023-05-24] VITALS (97 sets, daily range): BP systolic 89–147; BP diastolic 49–86; PULSE 62–89; RESP 10–25; TEMP 97.3–98.6; O2SAT 93–100
[2023-05-24] MEDS: IPRATROPIUM BROM 0.5 MG/2.5ML INH SOL NEB SCH (00:17)
[2023-05-24] MEDS: ALBUTEROL SULF 2.5 MG/0.5ML(0.5%) NEB SOLN NEB SCH (00:17)
[2023-05-24 04:06] LABS: Basophils # (auto) 0 10 ^3/uL (0-0.2); Basophils % (auto) 0.3 % (0.0-2.0); Eosinophils # (auto) 0 10 ^3/uL (0-0.8); Eosinophils % (auto) 0.1 % (0.0-7.0); Hematocrit 30.7 % (41.0-53.0); Hemoglobin 10.2 g/dL (13.5-17.5); Lymphocytes # (auto) 0.3 10 ^3/uL (0.4-5.4); Lymphocytes % (auto) 4.7 % (10.0-50.0); Mean Corpuscular Hemoglobin 30.5 pg (28.0-32.0); Mean Corpuscular Hgb Conc. 33.3 g/dL (32.0-36.0); Mean Corpuscular Volume 91.5 fL (80.0-100.0); Monocytes # (auto) 0.4 10 ^3/uL (0-1.3); Monocytes % (auto) 5.9 % (0.0-12.0); Neutrophils # (auto) 6.3 10 ^3/uL (1.6-8.6); Red Blood Cells 3.36 10^6/uL (4.5-5.90); Red Cell Distribution Width 14.9 % (11.8-14.3)
[2023-05-24 04:20] LABS: Alanine Aminotransferase 26 U/L (7-40); Albumin 3.3 g/dL (3.2-4.8); Alkaline Phosphatase 78 U/L (46-116); Anion Gap 14 (5-15); Aspartate Aminotransferase 37 U/L (13-40); BUN/Creatinine Ratio 8.9 (10.0-20.0); Calcium 8.3 mg/dL (8.7-10.4); Carbon Dioxide 19 mmol/L (20-30); Chloride 99 mmol/L (98-107); Glucose 284 mg/dL (74-106); Potassium 5.3 mmol/L (3.5-5.1); Sodium 132 mmol/L (136-145); Total Protein 6.3 g/dL (5.7-8.2)
[2023-05-24 04:28] LABS: Blood Urea Nitrogen 99 mg/dL (9-23)
[2023-05-24 04:34] LABS: % Iron Saturation 8.8 % (20-55)
[2023-05-24] MEDS: SODIUM CHL 0.9% 1000 ML BAG XX ONE (07:00)
[2023-05-24 09:23] LABS: INR 1.19 (0.9-1.15); Partial Thromboplastin Time 34.7 SEC (24.5-34.5); Prothrombin Time 12.4 sec (9.3-11.8)
[2023-05-24] MEDS ORDERED: CEFEPIME 1GM/ 50ML 50 ML IV SCH (10:00)
[2023-05-24] MEDS ORDERED: ENOXAPARIN SOD 30 MG/0.3 ML SYRINGE SC SCH ×2 (10:00)
[2023-05-24] MEDS: NOREPINEPHRINE 8 MG/250ML KIT 250 ML IV SCH (10:30)
[2023-05-24] MEDS: NOREPINEPHRINE 8 MG/250ML KIT 250 ML IV ONE (10:31)
[2023-05-24] MEDS: PANTOPRAZOLE 40 MG/10 ML VIAL INJ IV SCH (13:20)
[2023-05-24] MEDS: VANCOMYCIN 1GM/200ML 200 ML IV ONE (13:30)
[2023-05-24] MEDS: DexAMETHasone SOD PHOS 10MG/1ML VIAL INJ IV ONE (14:48)
[2023-05-24] MEDS: MUPIROCIN 2% OINT 15gm or 22gm FOR MRSA NARES EACHNOSTRI SCH (21:39)
[2023-05-24] MEDS: EPOETIN ALFA-EPBX 4,000 UNIT/ML VIAL SC ONE (21:39)
[2023-05-24] MEDS: MORPHINE SULFATE INJ 2 MG/ml SYRG IV PRN (23:20)
[2023-05-24] MEDS: ONDANSETRON HCL 4 MG/2 ML VIAL IV PRN (23:20)
[2023-05-25] VITALS (52 sets, daily range): BP systolic 108–137; BP diastolic 64–80; PULSE 69–107; RESP 8–21; TEMP 95.5–98.4; O2SAT 88–100
[2023-05-25 03:44] LABS: Basophils # (auto) 0 10 ^3/uL (0-0.2); Basophils % (auto) 0.2 % (0.0-2.0); Eosinophils # (auto) 0 10 ^3/uL (0-0.8); Hematocrit 30.2 % (41.0-53.0); Hemoglobin 9.9 g/dL (13.5-17.5); Lymphocytes # (auto) 0.3 10 ^3/uL (0.4-5.4); Lymphocytes % (auto) 3.5 % (10.0-50.0); Mean Corpuscular Hemoglobin 29.9 pg (28.0-32.0); Mean Corpuscular Hgb Conc. 32.9 g/dL (32.0-36.0); Mean Corpuscular Volume 90.9 fL (80.0-100.0); Monocytes # (auto) 0.8 10 ^3/uL (0-1.3); Monocytes % (auto) 9.7 % (0.0-12.0); Neutrophils # (auto) 7.1 10 ^3/uL (1.6-8.6); Neutrophils % (auto) 86.6 % (37.0-80.0); Red Blood Cells 3.32 10^6/uL (4.5-5.90); Red Cell Distribution Width 14.7 % (11.8-14.3); White Blood Cell 8.3 10^3/uL (4.4-10.8)
[2023-05-25 03:52] LABS: Chloride 100 mmol/L (98-107); Sodium 133 mmol/L (136-145)
[2023-05-25 03:53] LABS: Anion Gap 11 (5-15); Carbon Dioxide 22 mmol/L (20-30)
[2023-05-25 03:54] LABS: Calcium 8.3 mg/dL (8.5-10.1)
[2023-05-25 03:59] LABS: BUN/Creatinine Ratio 9.8 (10.0-20.0); Glucose 202 mg/dL (74-106)
[2023-05-25 04:06] LABS: Blood Urea Nitrogen 76 mg/dL (9-23)
[2023-05-25] MEDS: DexAMETHasone SOD PHOS 10MG/1ML VIAL INJ IV SCH (09:28)
[2023-05-25] MEDS: VANCOMYCIN 1GM/200ML 200 ML IV ONE (18:39)
[2023-05-26] VITALS (20 sets, daily range): BP systolic 122–165; BP diastolic 74–81; PULSE 78–118; RESP 12–20; TEMP 97.9–98.6; O2SAT 73–99
[2023-05-26 04:19] LABS: Hematocrit 27.7 % (41.0-53.0); Hemoglobin 9.3 g/dL (13.5-17.5); Mean Corpuscular Hemoglobin 30.2 pg (28.0-32.0); Mean Corpuscular Hgb Conc. 33.4 g/dL (32.0-36.0); Mean Corpuscular Volume 90.4 fL (80.0-100.0); Red Blood Cells 3.06 10^6/uL (4.5-5.90); Red Cell Distribution Width 14.6 % (11.8-14.3); White Blood Cell 8.7 10^3/uL (4.4-10.8)
[2023-05-26 04:31] LABS: Calcium 7.8 mg/dL (8.7-10.4); Chloride 98 mmol/L (98-107); Potassium 3.9 mmol/L (3.5-5.1); Sodium 134 mmol/L (136-145)
[2023-05-26 04:37] LABS: BUN/Creatinine Ratio 11.4 (10.0-20.0); Glucose 197 mg/dL (74-106)
[2023-05-26 04:40] LABS: Band Neutrophils % (manual) 0; Basophils % (manual) 0 (0.0-2.0); Blast Cells 0; Eosinophils % (manual) 0 (0-7); Metamyelocytes % 0; Promyelocytes % 0; Reactive Lymphocytes 0
[2023-05-26 05:24] LABS: Lymphocytes % (manual) 5 (10.0-50.0); Monocytes % (manual) 5 (0-12); Myelocytes % 1
[2023-05-26 05:25] LABS: Blood Urea Nitrogen 61 mg/dL (9-23); Platelet Estimate Decreased
[2023-05-26 05:34] LABS: Anion Gap 11 (5-15); Carbon Dioxide 25 mmol/L (20-30)
[2023-05-26 20:15] LABS: Triglycerides 205 mg/dL (< 150)
[2023-05-26 20:16] LABS: LDL Cholesterol 49 mg/dL (< 100)
[2023-05-26 20:17] LABS: Cholesterol 123 mg/dL (< 200); HDL Cholesterol 10 mg/dL (40-59)
[2023-05-26] MEDS: ATORVASTATIN 20 MG TAB PO SCH (21:36)
[2023-05-27] VITALS (15 sets, daily range): BP systolic 141–149; BP diastolic 81–89; PULSE 82–110; RESP 16–20; TEMP 97.6–98; O2SAT 90–99
[2023-05-27] MEDS: LORazepam 2MG/ML-1ML VIAL IV PRN (03:25)
[2023-05-27] MEDS: PANTOPRAZOLE 40 MG TAB PO ONE (11:20)
[2023-05-27] MEDS: DexAMETHasone 4 MG TAB PO ONE (12:49)
[2023-05-27 15:43] LABS: Basophils # (auto) 0 10 ^3/uL (0-0.2); Basophils % (auto) 0.3 % (0.0-2.0); Eosinophils # (auto) 0 10 ^3/uL (0-0.8); Eosinophils % (auto) 0.1 % (0.0-7.0); Hematocrit 31.3 % (41.0-53.0); Hemoglobin 10.1 g/dL (13.5-17.5); Lymphocytes # (auto) 0.5 10 ^3/uL (0.4-5.4); Lymphocytes % (auto) 4.1 % (10.0-50.0); Mean Corpuscular Hemoglobin 29.2 pg (28.0-32.0); Mean Corpuscular Hgb Conc. 32.2 g/dL (32.0-36.0); Mean Corpuscular Volume 90.7 fL (80.0-100.0); Monocytes # (auto) 0.8 10 ^3/uL (0-1.3); Monocytes % (auto) 7.2 % (0.0-12.0); Neutrophils # (auto) 9.8 10 ^3/uL (1.6-8.6); Neutrophils % (auto) 88.3 % (37.0-80.0); Red Blood Cells 3.46 10^6/uL (4.5-5.90); Red Cell Distribution Width 14.9 % (11.8-14.3); White Blood Cell 11.1 10^3/uL (4.4-10.8)
[2023-05-27 15:56] LABS: Anion Gap 10 (5-15); Carbon Dioxide 24 mmol/L (20-30); Chloride 98 mmol/L (98-107); Potassium 4.1 mmol/L (3.5-5.1); Sodium 132 mmol/L (136-145)
[2023-05-27 15:57] LABS: Calcium 7.8 mg/dL (8.7-10.4)
[2023-05-27 16:02] LABS: BUN/Creatinine Ratio 14.5 (10.0-20.0); Glucose 188 mg/dL (74-106)
[2023-05-27 16:04] LABS: Blood Urea Nitrogen 74 mg/dL (9-23)
[2023-05-27] MEDS: ACETAMINOPHEN 325 MG TAB PO PRN (16:56)
[2023-05-28] VITALS (15 sets, daily range): BP systolic 120–177; BP diastolic 78–99; PULSE 57–104; RESP 16–21; TEMP 97.8–98; O2SAT 95–100
[2023-05-28 06:21] LABS: Basophils # (auto) 0 10 ^3/uL (0-0.2); Basophils % (auto) 0.2 % (0.0-2.0); Eosinophils # (auto) 0 10 ^3/uL (0-0.8); Hematocrit 29.7 % (41.0-53.0); Hemoglobin 9.9 g/dL (13.5-17.5); Lymphocytes # (auto) 0.4 10 ^3/uL (0.4-5.4); Lymphocytes % (auto) 3.8 % (10.0-50.0); Mean Corpuscular Hemoglobin 30.1 pg (28.0-32.0); Mean Corpuscular Hgb Conc. 33.3 g/dL (32.0-36.0); Mean Corpuscular Volume 90.5 fL (80.0-100.0); Monocytes # (auto) 0.6 10 ^3/uL (0-1.3); Monocytes % (auto) 6.5 % (0.0-12.0); Neutrophils # (auto) 8.2 10 ^3/uL (1.6-8.6); Neutrophils % (auto) 89.5 % (37.0-80.0); Red Blood Cells 3.28 10^6/uL (4.5-5.90); Red Cell Distribution Width 14.6 % (11.8-14.3); White Blood Cell 9.2 10^3/uL (4.4-10.8)
[2023-05-28 06:30] LABS: Chloride 97 mmol/L (98-107); Potassium 4.2 mmol/L (3.5-5.1); Sodium 131 mmol/L (136-145)
[2023-05-28 06:31] LABS: Anion Gap 11 (5-15); Carbon Dioxide 23 mmol/L (20-30)
[2023-05-28 06:32] LABS: Calcium 8.1 mg/dL (8.7-10.4); INR 1.29 (0.9-1.15); Partial Thromboplastin Time 35.7 SEC (24.5-34.5); Prothrombin Time 13.3 sec (9.3-11.8)
[2023-05-28 06:37] LABS: BUN/Creatinine Ratio 11.5 (10.0-20.0); Blood Urea Nitrogen 66 mg/dL (9-23); Glucose 219 mg/dL (74-106)
[2023-05-28] MEDS: PANTOPRAZOLE 40 MG TAB PO SCH (10:32)
[2023-05-28] MEDS: LORazepam 2MG/ML-1ML VIAL IM PRN (10:34)
[2023-05-28] MEDS: LIDOCAINE W/ EPINEPHRINE 1% 20ML VIAL ONE (11:10)
[2023-05-28] MEDS: DexAMETHasone 4 MG TAB PO SCH (17:19)
[2023-05-29] VITALS (16 sets, daily range): BP systolic 149–165; BP diastolic 88–98; PULSE 80–97; RESP 16–21; TEMP 97.3–98; O2SAT 95–100
[2023-05-29 06:54] LABS: Basophils # (auto) 0 10 ^3/uL (0-0.2); Basophils % (auto) 0.3 % (0.0-2.0); Eosinophils # (auto) 0 10 ^3/uL (0-0.8); Eosinophils % (auto) 0.2 % (0.0-7.0); Hemoglobin 9.2 g/dL (13.5-17.5); Lymphocytes # (auto) 0.3 10 ^3/uL (0.4-5.4); Lymphocytes % (auto) 3.5 % (10.0-50.0); Mean Corpuscular Hemoglobin 30.1 pg (28.0-32.0); Mean Corpuscular Volume 91.3 fL (80.0-100.0); Monocytes # (auto) 0.7 10 ^3/uL (0-1.3); Monocytes % (auto) 7.6 % (0.0-12.0); Neutrophils # (auto) 8.3 10 ^3/uL (1.6-8.6); Neutrophils % (auto) 88.4 % (37.0-80.0); Red Blood Cells 3.07 10^6/uL (4.5-5.90); Red Cell Distribution Width 14.5 % (11.8-14.3); White Blood Cell 9.4 10^3/uL (4.4-10.8)
[2023-05-29 07:13] LABS: Chloride 98 mmol/L (98-107); Potassium 4.6 mmol/L (3.5-5.1); Sodium 131 mmol/L (136-145)
[2023-05-29 07:14] LABS: Anion Gap 11 (5-15); Carbon Dioxide 22 mmol/L (20-30)
[2023-05-29 07:15] LABS: Calcium 7.9 mg/dL (8.5-10.1)
[2023-05-29 07:19] LABS: Glucose 184 mg/dL (74-106)
[2023-05-29 07:27] LABS: Blood Urea Nitrogen 103 mg/dL (9-23)
[2023-05-29] MEDS: SODIUM CHL 0.9% 1000 ML BAG XX ONE ×2 (07:36→07:37)
[2023-05-29] MEDS: IOHEXOL 300 MG/ML 100ML BOTTLE IJ ONE (07:37)
[2023-05-29 09:20] LABS: Hepatitis B Surface Antibody Negative (Negative)
[2023-05-29 09:27] LABS: Hepatitis B Surface Antigen Negative (Negative)
[2023-05-29] MEDS: METOPROLOL SUCCINATE XL 50 MG TAB PO SCH (21:44)
[2023-05-29] MEDS: hydrALAZINE HCL 10 MG TAB PO PRN (23:20)
[2023-05-30] VITALS (12 sets, daily range): BP systolic 143–167; BP diastolic 81–87; PULSE 79–109; RESP 16–20; TEMP 97–97.8; O2SAT 92–97
[2023-05-30 14:23] LABS: Basophils # (auto) 0.1 10 ^3/uL (0-0.2); Basophils % (auto) 0.5 % (0.0-2.0); Eosinophils # (auto) 0.1 10 ^3/uL (0-0.8); Eosinophils % (auto) 0.6 % (0.0-7.0); Hematocrit 30.3 % (41.0-53.0); Hemoglobin 9.7 g/dL (13.5-17.5); Lymphocytes # (auto) 0.4 10 ^3/uL (0.4-5.4); Lymphocytes % (auto) 3.1 % (10.0-50.0); Mean Corpuscular Hemoglobin 29.1 pg (28.0-32.0); Mean Corpuscular Volume 90.9 fL (80.0-100.0); Monocytes # (auto) 0.8 10 ^3/uL (0-1.3); Monocytes % (auto) 6.8 % (0.0-12.0); Neutrophils # (auto) 10.7 10 ^3/uL (1.6-8.6); Red Blood Cells 3.33 10^6/uL (4.5-5.90); Red Cell Distribution Width 14.7 % (11.8-14.3); White Blood Cell 12.1 10^3/uL (4.4-10.8)
[2023-05-30 14:25] LABS: Chloride 97 mmol/L (98-107); Potassium 4.8 mmol/L (3.5-5.1); Sodium 130 mmol/L (136-145)
[2023-05-30 14:26] LABS: Anion Gap 13 (5-15); Carbon Dioxide 20 mmol/L (20-30)
[2023-05-30 14:27] LABS: Calcium 7.6 mg/dL (8.5-10.1)
[2023-05-30 14:31] LABS: Glucose 161 mg/dL (74-106)
[2023-05-30 14:56] LABS: Blood Urea Nitrogen 117 mg/dL (9-23)
[2023-05-30] MEDS: LIDOCAINE 2%HCL (LOCAL ANESTH.) INJ 20ML MDV ONE (17:39)
[2023-05-30] MEDS: HEPARIN SODIUM (PORCINE) 5000 UNITS/ML 1ML VIAL ONE (17:39)
[2023-05-30] MEDS: fentaNYL CITRATE 100 MCG/2 ML VL ONE (17:39)
[2023-05-30] MEDS: SODIUM ZIRCONIUM CYCL 10 GM PAK PO ONE (18:58)
[2023-05-30] MEDS ORDERED: VANCOMYCIN 1GM/200ML 200 ML IV ONE (20:00)
[2023-05-30] MEDS: DAPTOmycin 500 MG in SODIUM CHL 0.9% 50 ML IV SCH (20:34)
[2023-05-30] MEDS: CEFTAROLINE 200 MG in SODIUM CHL 0.9% 100 ML IV SCH (21:40)
[2023-05-31] VITALS (15 sets, daily range): BP systolic 131–161; BP diastolic 69–91; PULSE 75–102; RESP 12–20; TEMP 97.5–98.9; O2SAT 92–100
[2023-05-31 05:26] LABS: Basophils # (auto) 0 10 ^3/uL (0-0.2); Basophils % (auto) 0.1 % (0.0-2.0); Eosinophils # (auto) 0 10 ^3/uL (0-0.8); Eosinophils % (auto) 0.2 % (0.0-7.0); Hematocrit 28.5 % (41.0-53.0); Hemoglobin 9.5 g/dL (13.5-17.5); Lymphocytes # (auto) 0.3 10 ^3/uL (0.4-5.4); Lymphocytes % (auto) 2.6 % (10.0-50.0); Mean Corpuscular Hemoglobin 29.9 pg (28.0-32.0); Mean Corpuscular Hgb Conc. 33.2 g/dL (32.0-36.0); Mean Corpuscular Volume 90.2 fL (80.0-100.0); Monocytes # (auto) 1.1 10 ^3/uL (0-1.3); Monocytes % (auto) 8.1 % (0.0-12.0); Neutrophils # (auto) 11.7 10 ^3/uL (1.6-8.6); Red Blood Cells 3.16 10^6/uL (4.5-5.90); Red Cell Distribution Width 14.7 % (11.8-14.3); White Blood Cell 13.1 10^3/uL (4.4-10.8)
[2023-05-31 05:35] LABS: Anion Gap 14 (5-15); Carbon Dioxide 19 mmol/L (20-30); Chloride 96 mmol/L (98-107); Potassium 4.9 mmol/L (3.5-5.1); Sodium 129 mmol/L (136-145)
[2023-05-31 05:36] LABS: Calcium 7.6 mg/dL (8.5-10.1)
[2023-05-31 05:41] LABS: BUN/Creatinine Ratio 11.5 (10.0-20.0); Glucose 166 mg/dL (74-106)
[2023-05-31 06:30] LABS: Blood Urea Nitrogen 95 mg/dL (9-23)
[2023-05-31] MEDS: IOHEXOL 300 MG/ML 100ML BOTTLE IJ ONE (08:06)
[2023-05-31] MEDS: SODIUM ZIRCONIUM CYCL 10 GM PAK PO ONE (15:00)
[2023-06-01] VITALS (17 sets, daily range): BP systolic 129–156; BP diastolic 69–91; PULSE 75–137; RESP 16–91; TEMP 97.5–99.4; O2SAT 92–99
[2023-06-01 06:19] LABS: Eosinophils # (auto) 0.1 10 ^3/uL (0-0.8); Eosinophils % (auto) 0.6 % (0.0-7.0)
[2023-06-01 06:29] LABS: Basophils # (auto) 0.1 10 ^3/uL (0-0.2); Basophils % (auto) 0.6 % (0.0-2.0); Hematocrit 28.5 % (41.0-53.0); Hemoglobin 8.8 g/dL (13.5-17.5); Lymphocytes # (auto) 0.3 10 ^3/uL (0.4-5.4); Lymphocytes % (auto) 2.8 % (10.0-50.0); Mean Corpuscular Hemoglobin 28.8 pg (28.0-32.0); Mean Corpuscular Hgb Conc. 30.9 g/dL (32.0-36.0); Mean Corpuscular Volume 93.2 fL (80.0-100.0); Monocytes # (auto) 1.3 10 ^3/uL (0-1.3); Monocytes % (auto) 11.2 % (0.0-12.0); Neutrophils # (auto) 9.6 10 ^3/uL (1.6-8.6); Neutrophils % (auto) 84.8 % (37.0-80.0); Red Blood Cells 3.06 10^6/uL (4.5-5.90); White Blood Cell 11.3 10^3/uL (4.4-10.8)
[2023-06-01 06:35] LABS: Chloride 97 mmol/L (98-107); Potassium 5.1 mmol/L (3.5-5.1); Sodium 128 mmol/L (136-145)
[2023-06-01 06:36] LABS: Anion Gap 14 (5-15); Calcium 7.5 mg/dL (8.5-10.1); Carbon Dioxide 17 mmol/L (20-30)
[2023-06-01 06:41] LABS: BUN/Creatinine Ratio 10.4 (10.0-20.0); Glucose 132 mg/dL (74-106)
[2023-06-01 06:46] LABS: Blood Urea Nitrogen 95 mg/dL (9-23)
[2023-06-01 14:16] LABS: Chloride 96 mmol/L (98-107); Potassium 5.3 mmol/L (3.5-5.1); Sodium 128 mmol/L (136-145)
[2023-06-01 14:17] LABS: Anion Gap 15 (5-15); Calcium 7.5 mg/dL (8.5-10.1); Carbon Dioxide 17 mmol/L (20-30)
[2023-06-01 14:22] LABS: BUN/Creatinine Ratio 11.3 (10.0-20.0); Glucose 133 mg/dL (74-106)
[2023-06-01 14:55] LABS: Blood Urea Nitrogen 104 mg/dL (9-23)
[2023-06-01] MEDS: SODIUM ZIRCONIUM CYCL 10 GM PAK PO ONE (15:15)
[2023-06-02] VITALS (15 sets, daily range): BP systolic 132–148; BP diastolic 74–82; PULSE 75–103; RESP 16–18; TEMP 97–98.3; O2SAT 92–99
[2023-06-02] MEDS: MORPHINE SULFATE INJ 2 MG/ml SYRG IV PRN (00:42)
[2023-06-02 06:40] LABS: Basophils # (auto) 0 10 ^3/uL (0-0.2); Basophils % (auto) 0.1 % (0.0-2.0); Eosinophils # (auto) 0.1 10 ^3/uL (0-0.8); Eosinophils % (auto) 0.6 % (0.0-7.0); Hematocrit 28.4 % (41.0-53.0); Hemoglobin 9.2 g/dL (13.5-17.5); Lymphocytes # (auto) 0.6 10 ^3/uL (0.4-5.4); Mean Corpuscular Hemoglobin 29.6 pg (28.0-32.0); Mean Corpuscular Hgb Conc. 32.5 g/dL (32.0-36.0); Monocytes % (auto) 9.2 % (0.0-12.0); Neutrophils # (auto) 9.5 10 ^3/uL (1.6-8.6); Neutrophils % (auto) 85.1 % (37.0-80.0); Red Blood Cells 3.12 10^6/uL (4.5-5.90); Red Cell Distribution Width 14.4 % (11.8-14.3); White Blood Cell 11.2 10^3/uL (4.4-10.8)
[2023-06-02] MEDS: SODIUM CHL 0.9% 1000 ML BAG XX ONE (07:00)
[2023-06-02] MEDS: SODIUM ZIRCONIUM CYCL 10 GM PAK PO PRN (09:03)
[2023-06-02] MEDS: DAPTOmycin 500 MG in SODIUM CHL 0.9% 50 ML IV SCH (18:19)
[2023-06-02] MEDS: EPOETIN ALFA-EPBX 10,000 UNIT/1ML VIAL SC ONE (21:27)
[2023-06-03] VITALS (16 sets, daily range): BP systolic 106–124; BP diastolic 51–66; PULSE 76–101; RESP 16–18; TEMP 97.5–98.1; O2SAT 90–99
[2023-06-03 05:17] LABS: Basophils # (auto) 0 10 ^3/uL (0-0.2); Basophils % (auto) 0.1 % (0.0-2.0); Eosinophils # (auto) 0.1 10 ^3/uL (0-0.8); Eosinophils % (auto) 0.6 % (0.0-7.0); Hematocrit 27.9 % (41.0-53.0); Hemoglobin 9.1 g/dL (13.5-17.5); Lymphocytes # (auto) 0.5 10 ^3/uL (0.4-5.4); Mean Corpuscular Hemoglobin 29.4 pg (28.0-32.0); Mean Corpuscular Hgb Conc. 32.5 g/dL (32.0-36.0); Mean Corpuscular Volume 90.3 fL (80.0-100.0); Monocytes # (auto) 1.1 10 ^3/uL (0-1.3); Monocytes % (auto) 8.3 % (0.0-12.0); Neutrophils # (auto) 11.3 10 ^3/uL (1.6-8.6); Red Blood Cells 3.09 10^6/uL (4.5-5.90); Red Cell Distribution Width 14.4 % (11.8-14.3)
[2023-06-03 05:25] LABS: Chloride 98 mmol/L (98-107); Potassium 4.7 mmol/L (3.5-5.1)
[2023-06-03 05:26] LABS: Anion Gap 12 (5-15); Calcium 7.2 mg/dL (8.7-10.4); Carbon Dioxide 23 mmol/L (20-30)
[2023-06-03 05:29] LABS: Sodium 133 mmol/L (136-145)
[2023-06-03 05:31] LABS: BUN/Creatinine Ratio 11.3 (10.0-20.0); Glucose 138 mg/dL (74-106)
[2023-06-03 05:44] LABS: Blood Urea Nitrogen 86 mg/dL (9-23)
[2023-06-04] VITALS (13 sets, daily range): BP systolic 118–142; BP diastolic 57–86; PULSE 80–98; RESP 16–20; TEMP 97.7–98.1; O2SAT 90–99
[2023-06-04 05:50] LABS: Anion Gap 13 (5-15); Carbon Dioxide 20 mmol/L (20-30); Chloride 97 mmol/L (98-107); Potassium 5.4 mmol/L (3.5-5.1); Sodium 130 mmol/L (136-145)
[2023-06-04 05:51] LABS: Calcium 7.5 mg/dL (8.7-10.4)
[2023-06-04 05:56] LABS: BUN/Creatinine Ratio 9.1 (10.0-20.0); Glucose 101 mg/dL (74-106)
[2023-06-04 06:01] LABS: Blood Urea Nitrogen 76 mg/dL (9-23)
[2023-06-04 06:13] LABS: Eosinophils # (auto) 0.1 10 ^3/uL (0-0.8); Eosinophils % (auto) 0.7 % (0.0-7.0); Hemoglobin 9.5 g/dL (13.5-17.5); Lymphocytes # (auto) 0.9 10 ^3/uL (0.4-5.4); Lymphocytes % (auto) 5.4 % (10.0-50.0)
[2023-06-04 06:17] LABS: Basophils # (auto) 0 10 ^3/uL (0-0.2); Basophils % (auto) 0.3 % (0.0-2.0); Hematocrit 31.2 % (41.0-53.0); Mean Corpuscular Hemoglobin 29.4 pg (28.0-32.0); Mean Corpuscular Hgb Conc. 30.4 g/dL (32.0-36.0); Mean Corpuscular Volume 96.6 fL (80.0-100.0); Monocytes # (auto) 1.3 10 ^3/uL (0-1.3); Monocytes % (auto) 7.8 % (0.0-12.0); Neutrophils # (auto) 13.9 10 ^3/uL (1.6-8.6); Neutrophils % (auto) 85.8 % (37.0-80.0); Nucleated Red Blood Cells % 0.1 %; Red Blood Cells 3.23 10^6/uL (4.5-5.90); Red Cell Distribution Width 15.7 % (11.8-14.3); White Blood Cell 16.2 10^3/uL (4.4-10.8)
[2023-06-04] MEDS: SODIUM CHL 0.9% 1000 ML BAG XX ONE (07:00)
[2023-06-04] MEDS: EPOETIN ALFA-EPBX 4,000 UNIT/ML VIAL SC ONE (21:00)
[2023-06-05] VITALS (10 sets, daily range): BP systolic 92–123; BP diastolic 62–65; PULSE 66–105; RESP 18–20; TEMP 98.1; O2SAT 86–99
[2023-06-05 07:00] LABS: Basophils # (auto) 0 10 ^3/uL (0-0.2); Eosinophils # (auto) 0.1 10 ^3/uL (0-0.8); Hemoglobin 8.1 g/dL (13.5-17.5)
[2023-06-05 07:01] LABS: Basophils % (auto) 0.3 % (0.0-2.0); Eosinophils % (auto) 0.5 % (0.0-7.0); Lymphocytes # (auto) 0.6 10 ^3/uL (0.4-5.4); Lymphocytes % (auto) 4.8 % (10.0-50.0); Mean Corpuscular Hemoglobin 29.6 pg (28.0-32.0); Mean Corpuscular Hgb Conc. 32.4 g/dL (32.0-36.0); Mean Corpuscular Volume 91.3 fL (80.0-100.0); Monocytes % (auto) 7.5 % (0.0-12.0); Neutrophils # (auto) 11.7 10 ^3/uL (1.6-8.6); Neutrophils % (auto) 86.9 % (37.0-80.0); Red Blood Cells 2.74 10^6/uL (4.5-5.90); Red Cell Distribution Width 14.2 % (11.8-14.3); White Blood Cell 13.5 10^3/uL (4.4-10.8)
[2023-06-05 07:11] LABS: Calcium 7.4 mg/dL (8.7-10.4); Chloride 98 mmol/L (98-107); Potassium 4.7 mmol/L (3.5-5.1); Sodium 133 mmol/L (136-145)
[2023-06-05 07:12] LABS: Anion Gap 11 (5-15); Carbon Dioxide 24 mmol/L (20-30)
[2023-06-05 07:17] LABS: BUN/Creatinine Ratio 9.1 (10.0-20.0); Glucose 122 mg/dL (74-106)
[2023-06-05 07:19] LABS: Blood Urea Nitrogen 57 mg/dL (9-23)
[2023-06-05] MEDS ORDERED: VANCOMYCIN PER PHARMACY 0 MG IV SCH (17:30)
[2023-06-05] MEDS: VANCOMYCIN 1GM/200ML 200 ML IV ONE (17:45)
[2023-06-06 07:17] VITALS: O2SAT 90
[2023-06-06 08:09] LABS: Eosinophils # (auto) 0.1 10 ^3/uL (0-0.8); Monocytes # (auto) 1.2 10 ^3/uL (0-1.3); Monocytes % (auto) 9.2 % (0.0-12.0); Red Cell Distribution Width 14.6 % (11.8-14.3)
[2023-06-06 08:11] LABS: Basophils # (auto) 0 10 ^3/uL (0-0.2); Basophils % (auto) 0.3 % (0.0-2.0); Eosinophils % (auto) 0.5 % (0.0-7.0); Hematocrit 24.8 % (41.0-53.0); Hemoglobin 8.1 g/dL (13.5-17.5); Lymphocytes % (auto) 7.4 % (10.0-50.0); Mean Corpuscular Hemoglobin 29.9 pg (28.0-32.0); Mean Corpuscular Hgb Conc. 32.5 g/dL (32.0-36.0); Mean Corpuscular Volume 92.1 fL (80.0-100.0); Neutrophils # (auto) 11.1 10 ^3/uL (1.6-8.6); Neutrophils % (auto) 82.6 % (37.0-80.0); White Blood Cell 13.5 10^3/uL (4.4-10.8)
[2023-06-06 08:15] LABS: Chloride 98 mmol/L (98-107); Potassium 4.9 mmol/L (3.5-5.1); Sodium 132 mmol/L (136-145)
[2023-06-06 08:16] LABS: Anion Gap 11 (5-15); Carbon Dioxide 23 mmol/L (20-30)
[2023-06-06 08:17] LABS: Calcium 7.9 mg/dL (8.5-10.1)
[2023-06-06 08:21] LABS: Glucose 111 mg/dL (74-106)
[2023-06-06 08:30] VITALS: BP 162/78; PULSE 100; RESP 20; TEMP 98.1; O2SAT 94
[2023-06-06 08:51] LABS: Blood Urea Nitrogen 68 mg/dL (9-23)
[2023-06-06 10:00] VITALS: O2SAT 94
[2023-06-06] MEDS ORDERED: ALBUMIN 25% 100 ML IV PRN (12:45)
[2023-06-06] MEDS ORDERED: VANCOMYCIN 1GM/200ML 200 ML IV ONE (16:00)
[2023-06-06] MEDS: SODIUM CHL 0.9% 1000 ML BAG XX ONE (16:59)
[2023-06-06] MEDS: VANCOMYCIN 1GM/200ML 200 ML IV ONE (18:09)
[2023-06-06 20:00] VITALS: RESP 20
[2023-06-06 22:00] VITALS: BP 112/67; PULSE 95; RESP 17; TEMP 98.3; O2SAT 93
[2023-06-07] VITALS (7 sets, daily range): BP systolic 112–126; BP diastolic 61–74; PULSE 87–108; RESP 18–20; TEMP 98–98.4; O2SAT 91–96
[2023-06-07 06:36] LABS: Basophils # (auto) 0.1 10 ^3/uL (0-0.2); Basophils % (auto) 0.7 % (0.0-2.0); Eosinophils # (auto) 0.1 10 ^3/uL (0-0.8); Hemoglobin 7.9 g/dL (13.5-17.5); Lymphocytes # (auto) 1.1 10 ^3/uL (0.4-5.4); Lymphocytes % (auto) 9.5 % (10.0-50.0); White Blood Cell 11.3 10^3/uL (4.4-10.8)
[2023-06-07 06:38] LABS: Eosinophils % (auto) 0.8 % (0.0-7.0); Hematocrit 25.1 % (41.0-53.0); Mean Corpuscular Hemoglobin 29.4 pg (28.0-32.0); Mean Corpuscular Hgb Conc. 31.4 g/dL (32.0-36.0); Mean Corpuscular Volume 93.6 fL (80.0-100.0); Monocytes # (auto) 1.2 10 ^3/uL (0-1.3); Monocytes % (auto) 10.5 % (0.0-12.0); Neutrophils # (auto) 8.8 10 ^3/uL (1.6-8.6); Neutrophils % (auto) 78.5 % (37.0-80.0); Red Blood Cells 2.68 10^6/uL (4.5-5.90)
[2023-06-07 06:47] LABS: Chloride 100 mmol/L (98-107); Potassium 4.4 mmol/L (3.5-5.1); Sodium 136 mmol/L (136-145)
[2023-06-07 06:48] LABS: Anion Gap 12 (5-15); Carbon Dioxide 24 mmol/L (20-30)
[2023-06-07 06:53] LABS: BUN/Creatinine Ratio 7.2 (10.0-20.0); Glucose 99 mg/dL (74-106)
[2023-06-07 07:07] LABS: Blood Urea Nitrogen 42 mg/dL (9-23)
[2023-06-07] MEDS: VANCOMYCIN 1 GM/200 ML IV ONE (13:30)
[2023-06-08] VITALS (8 sets, daily range): BP systolic 101–163; BP diastolic 54–77; PULSE 87–106; RESP 18–22; TEMP 97.7–98.4; O2SAT 91–97
[2023-06-08 10:14] LABS: Chloride 97 mmol/L (98-107); Potassium 4.5 mmol/L (3.5-5.1); Sodium 133 mmol/L (136-145)
[2023-06-08 10:15] LABS: Anion Gap 13 (5-15); Carbon Dioxide 23 mmol/L (20-30)
[2023-06-08 10:16] LABS: Calcium 7.6 mg/dL (8.5-10.1)
[2023-06-08 10:20] LABS: BUN/Creatinine Ratio 9.2 (10.0-20.0); Glucose 121 mg/dL (74-106)
[2023-06-08 10:31] LABS: Basophils # (auto) 0.1 10 ^3/uL (0-0.2); Blood Urea Nitrogen 68 mg/dL (9-23); Eosinophils # (auto) 0.1 10 ^3/uL (0-0.8); Eosinophils % (auto) 1.1 % (0.0-7.0); Mean Corpuscular Hemoglobin 29.4 pg (28.0-32.0); Monocytes # (auto) 1.2 10 ^3/uL (0-1.3); Neutrophils # (auto) 10.6 10 ^3/uL (1.6-8.6)
[2023-06-08 10:32] LABS: Hemoglobin 7.2 g/dL (13.5-17.5); Lymphocytes # (auto) 1.2 10 ^3/uL (0.4-5.4); Lymphocytes % (auto) 8.7 % (10.0-50.0); Mean Corpuscular Hgb Conc. 31.5 g/dL (32.0-36.0); Mean Corpuscular Volume 93.5 fL (80.0-100.0); Monocytes % (auto) 9.1 % (0.0-12.0); Neutrophils % (auto) 80.1 % (37.0-80.0); Nucleated Red Blood Cells % 0.1 %; Red Blood Cells 2.46 10^6/uL (4.5-5.90); Red Cell Distribution Width 15.1 % (11.8-14.3); White Blood Cell 13.3 10^3/uL (4.4-10.8)
[2023-06-08] MEDS: IOHEXOL 300 MG/ML 100ML BOTTLE IJ ONE (15:55)
[2023-06-08] MEDS: EPOETIN ALFA-EPBX 10,000 UNIT/1ML VIAL SC ONE (21:00)
[2023-06-09 05:25] LABS: Basophils # (auto) 0.1 10 ^3/uL (0-0.2); Eosinophils # (auto) 0.1 10 ^3/uL (0-0.8); Hematocrit 25.5 % (41.0-53.0); Hemoglobin 8.2 g/dL (13.5-17.5); Lymphocytes % (auto) 8.8 % (10.0-50.0); Mean Corpuscular Hemoglobin 29.3 pg (28.0-32.0); Mean Corpuscular Hgb Conc. 32.1 g/dL (32.0-36.0); Mean Corpuscular Volume 91.4 fL (80.0-100.0); Monocytes # (auto) 1.2 10 ^3/uL (0-1.3); Monocytes % (auto) 10.8 % (0.0-12.0); Neutrophils # (auto) 8.9 10 ^3/uL (1.6-8.6); Neutrophils % (auto) 78.4 % (37.0-80.0); Red Blood Cells 2.79 10^6/uL (4.5-5.90); Red Cell Distribution Width 14.8 % (11.8-14.3); White Blood Cell 11.4 10^3/uL (4.4-10.8)
[2023-06-09 05:35] LABS: Anion Gap 11 (5-15); Carbon Dioxide 25 mmol/L (20-30); Chloride 97 mmol/L (98-107); Potassium 4.2 mmol/L (3.5-5.1); Sodium 133 mmol/L (136-145)
[2023-06-09 05:36] LABS: Calcium 8.1 mg/dL (8.5-10.1)
[2023-06-09 05:41] LABS: BUN/Creatinine Ratio 6.6 (10.0-20.0); Glucose 99 mg/dL (74-106)
[2023-06-09 05:48] LABS: Blood Urea Nitrogen 38 mg/dL (9-23)
[2023-06-09 08:30] VITALS: BP 153/73; PULSE 91; RESP 18; TEMP 97.5; O2SAT 92
[2023-06-09 10:00] VITALS: O2SAT 92
[2023-06-09 11:19] LABS: COVID19 ANTIGEN SOFIA FIA NEGATIVE (NEGATIVE)
[2023-06-09] MEDS: HYDROcodone-ACET 5/325MG TAB PO PRN (11:37)
[2023-06-09 12:40] VITALS: BP 132/69; PULSE 103; RESP 18; TEMP 98; O2SAT 97
[2023-06-09 16:57] VITALS: BP 111/65; PULSE 94; RESP 18; TEMP 98; O2SAT 97
[2023-06-09 20:00] VITALS: PULSE 84; RESP 16
[2023-06-09 22:00] VITALS: BP 119/76; PULSE 84; RESP 16; TEMP 97.8; O2SAT 97
[2023-06-10 05:00] VITALS: BP 136/74; PULSE 77; RESP 17; TEMP 97.8; O2SAT 96
[2023-06-10] MEDS: SODIUM CHL 0.9% 1000 ML BAG XX ONE (07:00)
[2023-06-10 09:00] VITALS: BP 146/80; PULSE 95; RESP 18; TEMP 98.2; O2SAT 98
[2023-06-10 09:56] LABS: Basophils # (auto) 0.1 10 ^3/uL (0-0.2); Basophils % (auto) 0.9 % (0.0-2.0); Monocytes # (auto) 1.1 10 ^3/uL (0-1.3); Monocytes % (auto) 11.4 % (0.0-12.0)
[2023-06-10 09:57] LABS: Eosinophils # (auto) 0.1 10 ^3/uL (0-0.8); Eosinophils % (auto) 1.5 % (0.0-7.0); Hematocrit 24.3 % (41.0-53.0); Lymphocytes % (auto) 10.3 % (10.0-50.0); Mean Corpuscular Hgb Conc. 32.9 g/dL (32.0-36.0); Mean Corpuscular Volume 91.3 fL (80.0-100.0); Neutrophils # (auto) 7.4 10 ^3/uL (1.6-8.6); Neutrophils % (auto) 75.9 % (37.0-80.0); Red Blood Cells 2.66 10^6/uL (4.5-5.90); Red Cell Distribution Width 14.7 % (11.8-14.3); White Blood Cell 9.7 10^3/uL (4.4-10.8)
[2023-06-10 10:00] VITALS: O2SAT 98
[2023-06-10 10:06] LABS: Chloride 97 mmol/L (98-107); Potassium 4.4 mmol/L (3.5-5.1); Sodium 131 mmol/L (136-145)
[2023-06-10 10:07] LABS: Anion Gap 10 (5-15); Calcium 7.6 mg/dL (8.7-10.4); Carbon Dioxide 24 mmol/L (20-30)
[2023-06-10 10:12] LABS: BUN/Creatinine Ratio 7.1 (10.0-20.0); Glucose 117 mg/dL (74-106)
[2023-06-10 10:15] LABS: Blood Urea Nitrogen 50 mg/dL (9-23)
[2023-06-10 20:00] VITALS: PULSE 65
[2023-06-10] MEDS: EPOETIN ALFA-EPBX 10,000 UNIT/1ML VIAL SC ONE (21:00)
[2023-06-10 22:00] VITALS: BP 107/73; PULSE 54; RESP 23; TEMP 98.4; O2SAT 92
[2023-06-11] VITALS (8 sets, daily range): BP systolic 110–171; BP diastolic 58–80; PULSE 70–111; RESP 16–23; TEMP 97.6–98.3; O2SAT 93–97
[2023-06-11 05:51] LABS: Chloride 96 mmol/L (98-107); Potassium 4.5 mmol/L (3.5-5.1); Sodium 130 mmol/L (136-145)
[2023-06-11 05:52] LABS: Anion Gap 12 (5-15); Carbon Dioxide 22 mmol/L (20-30)
[2023-06-11 05:53] LABS: Calcium 7.6 mg/dL (8.7-10.4)
[2023-06-11 05:55] LABS: Basophils # (auto) 0.1 10 ^3/uL (0-0.2); Basophils % (auto) 0.7 % (0.0-2.0); Eosinophils # (auto) 0.2 10 ^3/uL (0-0.8); Hematocrit 24.7 % (41.0-53.0); Lymphocytes # (auto) 1.2 10 ^3/uL (0.4-5.4); Mean Corpuscular Volume 90.3 fL (80.0-100.0); Monocytes # (auto) 1.3 10 ^3/uL (0-1.3); Neutrophils % (auto) 73.5 % (37.0-80.0)
[2023-06-11 05:57] LABS: Glucose 107 mg/dL (74-106); Lymphocytes % (auto) 11.4 % (10.0-50.0); Mean Corpuscular Hemoglobin 29.2 pg (28.0-32.0); Mean Corpuscular Hgb Conc. 32.3 g/dL (32.0-36.0); Monocytes % (auto) 12.4 % (0.0-12.0); Neutrophils # (auto) 7.5 10 ^3/uL (1.6-8.6); Red Blood Cells 2.73 10^6/uL (4.5-5.90); Red Cell Distribution Width 14.6 % (11.8-14.3); White Blood Cell 10.2 10^3/uL (4.4-10.8)
[2023-06-11 05:58] LABS: BUN/Creatinine Ratio 7.1 (10.0-20.0); Blood Urea Nitrogen 56 mg/dL (9-23)
[2023-06-11] MEDS: SODIUM CHL 0.9% 1000 ML BAG XX ONE (07:00)
[2023-06-11] MEDS: EPOETIN ALFA-EPBX 10,000 UNIT/1ML VIAL SC ONE (20:50)
[2023-06-12] VITALS (8 sets, daily range): BP systolic 125–157; BP diastolic 66–87; PULSE 94–105; RESP 17–20; TEMP 97.5–98.3; O2SAT 95–99
[2023-06-12 05:54] LABS: Basophils # (auto) 0.1 10 ^3/uL (0-0.2); Eosinophils # (auto) 0.2 10 ^3/uL (0-0.8); Hemoglobin 7.9 g/dL (13.5-17.5); Neutrophils # (auto) 5.6 10 ^3/uL (1.6-8.6)
[2023-06-12 05:58] LABS: Eosinophils % (auto) 2.6 % (0.0-7.0); Hematocrit 24.5 % (41.0-53.0); Lymphocytes # (auto) 0.9 10 ^3/uL (0.4-5.4); Lymphocytes % (auto) 11.3 % (10.0-50.0); Mean Corpuscular Hemoglobin 29.4 pg (28.0-32.0); Mean Corpuscular Hgb Conc. 32.4 g/dL (32.0-36.0); Mean Corpuscular Volume 90.7 fL (80.0-100.0); Monocytes # (auto) 1.2 10 ^3/uL (0-1.3); Monocytes % (auto) 14.8 % (0.0-12.0); Neutrophils % (auto) 70.3 % (37.0-80.0); Red Cell Distribution Width 14.8 % (11.8-14.3)
[2023-06-12 06:07] LABS: Anion Gap 10 (5-15); Carbon Dioxide 25 mmol/L (20-30); Chloride 98 mmol/L (98-107); Potassium 4.1 mmol/L (3.5-5.1); Sodium 133 mmol/L (136-145)
[2023-06-12 06:08] LABS: Calcium 7.9 mg/dL (8.7-10.4)
[2023-06-12 06:13] LABS: Albumin 2.6 g/dL (3.2-4.8); BUN/Creatinine Ratio 6.6 (10.0-20.0); Glucose 117 mg/dL (74-106)
[2023-06-12 06:15] LABS: Phosphorus 7.2 mg/dL (2.4-5.1)
[2023-06-12 06:37] LABS: Blood Urea Nitrogen 44 mg/dL (9-23)
[2023-06-13] VITALS (7 sets, daily range): BP systolic 116–142; BP diastolic 62–88; PULSE 61–98; RESP 17–20; TEMP 97.4–98; O2SAT 94–98
[2023-06-13 07:25] LABS: Basophils # (auto) 0.1 10 ^3/uL (0-0.2); Eosinophils # (auto) 0.3 10 ^3/uL (0-0.8); Eosinophils % (auto) 3.7 % (0.0-7.0); Hemoglobin 8.3 g/dL (13.5-17.5); Lymphocytes # (auto) 1.1 10 ^3/uL (0.4-5.4); Lymphocytes % (auto) 13.1 % (10.0-50.0); Mean Corpuscular Hemoglobin 29.7 pg (28.0-32.0); Monocytes # (auto) 1.2 10 ^3/uL (0-1.3)
[2023-06-13 07:28] LABS: Hematocrit 25.7 % (41.0-53.0); Mean Corpuscular Hgb Conc. 32.4 g/dL (32.0-36.0); Mean Corpuscular Volume 91.7 fL (80.0-100.0); Monocytes % (auto) 13.7 % (0.0-12.0); Neutrophils # (auto) 5.8 10 ^3/uL (1.6-8.6); Neutrophils % (auto) 68.5 % (37.0-80.0); Nucleated Red Blood Cells % 0.3 %; Red Cell Distribution Width 14.6 % (11.8-14.3); White Blood Cell 8.4 10^3/uL (4.4-10.8)
[2023-06-13 07:43] LABS: Anion Gap 10 (5-15); Carbon Dioxide 25 mmol/L (20-30); Chloride 96 mmol/L (98-107); Potassium 4.4 mmol/L (3.5-5.1); Sodium 131 mmol/L (136-145)
[2023-06-13 07:44] LABS: Calcium 8.2 mg/dL (8.5-10.1)
[2023-06-13 07:50] LABS: BUN/Creatinine Ratio 5.5 (10.0-20.0); Blood Urea Nitrogen 41 mg/dL (9-23); Glucose 102 mg/dL (74-106)
[2023-06-13] MEDS: VANCOMYCIN 1GM/200ML 200 ML IV ONE (17:15)
[2023-06-13] MEDS: EPOETIN ALFA-EPBX 10,000 UNIT/1ML VIAL SC ONE (22:02)
[2023-06-14] VITALS (7 sets, daily range): BP systolic 110–111; BP diastolic 59–71; PULSE 91–94; RESP 16–20; TEMP 97.7–98.1; O2SAT 95–100
[2023-06-14 06:22] LABS: Basophils # (auto) 0.1 10 ^3/uL (0-0.2); Basophils % (auto) 0.9 % (0.0-2.0); Eosinophils # (auto) 0.5 10 ^3/uL (0-0.8); Hematocrit 27.4 % (41.0-53.0); Lymphocytes # (auto) 1.1 10 ^3/uL (0.4-5.4); Mean Corpuscular Hemoglobin 29.2 pg (28.0-32.0); Mean Corpuscular Volume 100.6 fL (80.0-100.0); Monocytes # (auto) 1.3 10 ^3/uL (0-1.3); Monocytes % (auto) 14.1 % (0.0-12.0); Neutrophils # (auto) 6.4 10 ^3/uL (1.6-8.6); Red Blood Cells 2.72 10^6/uL (4.5-5.90); Red Cell Distribution Width 16.3 % (11.8-14.3); White Blood Cell 9.4 10^3/uL (4.4-10.8)
[2023-06-14 06:34] LABS: Calcium 7.1 mg/dL (8.7-10.4); Chloride 96 mmol/L (98-107); Potassium 5.1 mmol/L (3.5-5.1); Sodium 130 mmol/L (136-145)
[2023-06-14 06:35] LABS: Anion Gap 12 (5-15); Carbon Dioxide 22 mmol/L (20-30)
[2023-06-14 06:40] LABS: BUN/Creatinine Ratio 8.2 (10.0-20.0); Glucose 100 mg/dL (74-106)
[2023-06-14 06:41] LABS: Blood Urea Nitrogen 69 mg/dL (9-23)
[2023-06-15 05:28] LABS: Chloride 94 mmol/L (98-107); Potassium 4.6 mmol/L (3.5-5.1); Sodium 129 mmol/L (136-145)
[2023-06-15 05:29] LABS: Anion Gap 13 (5-15); Calcium 7.8 mg/dL (8.5-10.1); Carbon Dioxide 22 mmol/L (20-30)
[2023-06-15 05:30] LABS: Basophils # (auto) 0.1 10 ^3/uL (0-0.2); Basophils % (auto) 0.7 % (0.0-2.0); Eosinophils # (auto) 0.5 10 ^3/uL (0-0.8); Eosinophils % (auto) 5.4 % (0.0-7.0); Monocytes # (auto) 1.4 10 ^3/uL (0-1.3); Neutrophils % (auto) 67.2 % (37.0-80.0); Nucleated Red Blood Cells % 0.2 %; Red Blood Cells 2.73 10^6/uL (4.5-5.90)
[2023-06-15 05:32] LABS: Hematocrit 25.6 % (41.0-53.0); Hemoglobin 8.1 g/dL (13.5-17.5); Lymphocytes # (auto) 1.1 10 ^3/uL (0.4-5.4); Lymphocytes % (auto) 11.6 % (10.0-50.0); Mean Corpuscular Hemoglobin 29.8 pg (28.0-32.0); Mean Corpuscular Hgb Conc. 31.8 g/dL (32.0-36.0); Mean Corpuscular Volume 93.6 fL (80.0-100.0); Monocytes % (auto) 15.1 % (0.0-12.0); Neutrophils # (auto) 6.4 10 ^3/uL (1.6-8.6); Red Cell Distribution Width 15.4 % (11.8-14.3); White Blood Cell 9.6 10^3/uL (4.4-10.8)
[2023-06-15 05:34] LABS: BUN/Creatinine Ratio 6.1 (10.0-20.0); Glucose 120 mg/dL (74-106)
[2023-06-15 06:03] LABS: Blood Urea Nitrogen 56 mg/dL (9-23)
[2023-06-15 09:00] VITALS: BP 130/72; PULSE 103; RESP 18; TEMP 98.3; O2SAT 98
[2023-06-15 16:00] VITALS: BP 111/71; PULSE 95; RESP 20; TEMP 97.3; O2SAT 97
[2023-06-15 20:00] VITALS: RESP 17
[2023-06-15 21:50] VITALS: BP 98/100; PULSE 99; RESP 20; TEMP 98.1; O2SAT 92
[2023-06-16] VITALS (9 sets, daily range): BP systolic 123–157; BP diastolic 61–88; PULSE 88–109; RESP 18–22; TEMP 97.6–98.6; O2SAT 94–100
[2023-06-16 05:31] LABS: Basophils # (auto) 0.1 10 ^3/uL (0-0.2); Monocytes # (auto) 1.6 10 ^3/uL (0-1.3)
[2023-06-16 05:33] LABS: Basophils % (auto) 0.7 % (0.0-2.0); Eosinophils # (auto) 0.7 10 ^3/uL (0-0.8); Eosinophils % (auto) 7.5 % (0.0-7.0); Hematocrit 24.4 % (41.0-53.0); Hemoglobin 7.9 g/dL (13.5-17.5); Lymphocytes # (auto) 1.3 10 ^3/uL (0.4-5.4); Lymphocytes % (auto) 12.7 % (10.0-50.0); Mean Corpuscular Hemoglobin 29.5 pg (28.0-32.0); Mean Corpuscular Hgb Conc. 32.5 g/dL (32.0-36.0); Mean Corpuscular Volume 90.7 fL (80.0-100.0); Monocytes % (auto) 15.7 % (0.0-12.0); Neutrophils # (auto) 6.3 10 ^3/uL (1.6-8.6); Neutrophils % (auto) 63.4 % (37.0-80.0); Red Blood Cells 2.69 10^6/uL (4.5-5.90); Red Cell Distribution Width 15.1 % (11.8-14.3); White Blood Cell 9.9 10^3/uL (4.4-10.8)
[2023-06-16 05:58] LABS: Chloride 93 mmol/L (98-107); Potassium 4.8 mmol/L (3.5-5.1); Sodium 129 mmol/L (136-145)
[2023-06-16 05:59] LABS: Anion Gap 14 (5-15); Calcium 7.8 mg/dL (8.5-10.1); Carbon Dioxide 22 mmol/L (20-30)
[2023-06-16 06:04] LABS: BUN/Creatinine Ratio 6.3 (10.0-20.0); Blood Urea Nitrogen 62 mg/dL (9-23); Glucose 101 mg/dL (74-106)
[2023-06-16] MEDS: LINEZOLID 600MG/300ML 300 ML IV SCH (09:56)
[2023-06-17] VITALS (7 sets, daily range): BP systolic 102–134; BP diastolic 36–80; PULSE 102–111; RESP 16–22; TEMP 97.5–98.8; O2SAT 89–99
[2023-06-17 06:57] LABS: Basophils # (auto) 0.1 10 ^3/uL (0-0.2); Eosinophils # (auto) 0.9 10 ^3/uL (0-0.8); Hemoglobin 7.9 g/dL (13.5-17.5); Monocytes # (auto) 1.6 10 ^3/uL (0-1.3)
[2023-06-17 07:00] LABS: Eosinophils % (auto) 7.6 % (0.0-7.0); Hematocrit 25.7 % (41.0-53.0); Lymphocytes # (auto) 1.3 10 ^3/uL (0.4-5.4); Lymphocytes % (auto) 11.7 % (10.0-50.0); Mean Corpuscular Hemoglobin 28.8 pg (28.0-32.0); Mean Corpuscular Hgb Conc. 30.7 g/dL (32.0-36.0); Mean Corpuscular Volume 93.7 fL (80.0-100.0); Monocytes % (auto) 13.5 % (0.0-12.0); Neutrophils # (auto) 7.6 10 ^3/uL (1.6-8.6); Neutrophils % (auto) 66.2 % (37.0-80.0); Red Blood Cells 2.74 10^6/uL (4.5-5.90); Red Cell Distribution Width 15.7 % (11.8-14.3); White Blood Cell 11.5 10^3/uL (4.4-10.8)
[2023-06-17 07:01] LABS: Chloride 92 mmol/L (98-107); Potassium 5.1 mmol/L (3.5-5.1); Sodium 128 mmol/L (136-145)
[2023-06-17 07:02] LABS: Anion Gap 14 (5-15); Calcium 7.6 mg/dL (8.5-10.1); Carbon Dioxide 22 mmol/L (20-30)
[2023-06-17 07:07] LABS: BUN/Creatinine Ratio 7.6 (10.0-20.0); Glucose 99 mg/dL (74-106)
[2023-06-17 07:18] LABS: Blood Urea Nitrogen 80 mg/dL (9-23)
[2023-06-17] MEDS ORDERED: VANCOMYCIN PER PHARMACY 0 MG IV SCH (09:45)
[2023-06-17] MEDS: SODIUM CHL 0.9% 1000 ML BAG XX ONE (13:15)
[2023-06-17] MEDS: HYDROmorphone HCL 2 MG/ML VL/or syr IV ONE (14:10)
[2023-06-18] VITALS (8 sets, daily range): BP systolic 104–132; BP diastolic 53–65; PULSE 62–109; RESP 16–24; TEMP 97–97.9; O2SAT 90–98
[2023-06-18 05:43] LABS: Hemoglobin 7.7 g/dL (13.5-17.5); Red Cell Distribution Width 15.2 % (11.8-14.3)
[2023-06-18 05:44] LABS: Albumin 2.4 g/dL (3.2-4.8); Alkaline Phosphatase 103 U/L (46-116); Anion Gap 15 (5-15); BUN/Creatinine Ratio 7.1 (10.0-20.0); Blood Urea Nitrogen 78 mg/dL (9-23); Calcium 7.4 mg/dL (8.7-10.4); Carbon Dioxide 21 mmol/L (20-30); Chloride 93 mmol/L (98-107); Glucose 96 mg/dL (74-106); Potassium 5.1 mmol/L (3.5-5.1); Sodium 129 mmol/L (136-145)
[2023-06-18 05:45] LABS: Aspartate Aminotransferase 18 U/L (13-40); Bilirubin, Total 0.4 mg/dL (0.2-1.0); Total Protein 6.4 g/dL (5.7-8.2)
[2023-06-18 05:46] LABS: Hematocrit 24.5 % (41.0-53.0); Mean Corpuscular Hemoglobin 28.4 pg (28.0-32.0); Mean Corpuscular Hgb Conc. 31.2 g/dL (32.0-36.0)
[2023-06-18 05:50] LABS: Alanine Aminotransferase < 9 U/L (7-40)
[2023-06-18 06:00] LABS: Basophils % (manual) 0 (0.0-2.0); Metamyelocytes % 0; Myelocytes % 0; Promyelocytes % 0; Reactive Lymphocytes 0
[2023-06-18 13:55] LABS: Band Neutrophils % (manual) 1; Blast Cells 2; Eosinophils % (manual) 5 (0-7); Lymphocytes % (manual) 15 (10.0-50.0); Monocytes % (manual) 14 (0-12)
[2023-06-18 13:57] LABS: Platelet Estimate Adequate
[2023-06-19] VITALS (8 sets, daily range): BP systolic 114–128; BP diastolic 68–80; PULSE 96–107; RESP 16–24; TEMP 97.8–99.3; O2SAT 95–98
[2023-06-19 06:07] LABS: Anion Gap 16 (5-15); Carbon Dioxide 20 mmol/L (20-30); Chloride 93 mmol/L (98-107); Potassium 5.5 mmol/L (3.5-5.1); Sodium 129 mmol/L (136-145)
[2023-06-19 06:08] LABS: Calcium 7.5 mg/dL (8.5-10.1)
[2023-06-19 06:13] LABS: BUN/Creatinine Ratio 7.5 (10.0-20.0); Glucose 91 mg/dL (74-106)
[2023-06-19 06:29] LABS: Blood Urea Nitrogen 89 mg/dL (9-23)
[2023-06-20 05:00] VITALS: BP 112/64; PULSE 84; RESP 84; TEMP 96.2; O2SAT 97
[2023-06-20] MEDS ORDERED: VANCOMYCIN PER PHARMACY 0 MG IV SCH (07:00)
[2023-06-20] MEDS: SODIUM CHL 0.9% 1000 ML BAG XX ONE (07:00)
[2023-06-20 08:52] VITALS: BP 104/57; PULSE 87; RESP 17; TEMP 98.4; O2SAT 100
[2023-06-20 10:00] VITALS: O2SAT 91
[2023-06-20 10:22] LABS: Chloride 93 mmol/L (98-107); Sodium 129 mmol/L (136-145)
[2023-06-20 10:23] LABS: Anion Gap 15 (5-15); Carbon Dioxide 21 mmol/L (20-30)
[2023-06-20 10:24] LABS: Calcium 7.4 mg/dL (8.5-10.1)
[2023-06-20 10:28] LABS: Glucose 101 mg/dL (74-106)
[2023-06-20 10:29] LABS: BUN/Creatinine Ratio 6.7 (10.0-20.0)
[2023-06-20 10:33] LABS: Basophils # (auto) 0.1 10 ^3/uL (0-0.2); Lymphocytes # (auto) 1.5 10 ^3/uL (0.4-5.4); Lymphocytes % (auto) 9.3 % (10.0-50.0); Nucleated Red Blood Cells % 0.2 %; White Blood Cell 16.4 10^3/uL (4.4-10.8)
[2023-06-20 10:35] LABS: Basophils % (auto) 0.7 % (0.0-2.0); Eosinophils # (auto) 0.8 10 ^3/uL (0-0.8); Eosinophils % (auto) 4.9 % (0.0-7.0); Hematocrit 26.4 % (41.0-53.0); Hemoglobin 8.1 g/dL (13.5-17.5); Mean Corpuscular Hemoglobin 28.8 pg (28.0-32.0); Mean Corpuscular Hgb Conc. 30.7 g/dL (32.0-36.0); Mean Corpuscular Volume 93.9 fL (80.0-100.0); Monocytes # (auto) 1.9 10 ^3/uL (0-1.3); Monocytes % (auto) 11.9 % (0.0-12.0); Neutrophils % (auto) 73.2 % (37.0-80.0); Red Blood Cells 2.81 10^6/uL (4.5-5.90); Red Cell Distribution Width 16.4 % (11.8-14.3)
[2023-06-20 11:46] LABS: Blood Urea Nitrogen 86 mg/dL (9-23); Potassium 5.9 mmol/L (3.5-5.1)
[2023-06-20 13:00] VITALS: BP 122/86; PULSE 72; RESP 17; TEMP 98.4; O2SAT 91
[2023-06-20] MEDS: VANCOMYCIN 500 MG in D5W 5% 100 ML IV ONE (14:41)
[2023-06-20] MEDS: LIDOCAINE 2%HCL (LOCAL ANESTH.) INJ 20ML MDV ONE (15:57)
[2023-06-20] MEDS: HEPARIN SODIUM (PORCINE) 5000 UNITS/ML 1ML VIAL ONE (16:21)
[2023-06-20 20:00] VITALS: RESP 20; O2SAT 98
[2023-06-20 22:00] VITALS: BP 98/57; PULSE 118; RESP 20; TEMP 99.1; O2SAT 98
[2023-06-20] MEDS: EPOETIN ALFA-EPBX 10,000 UNIT/1ML VIAL SC ONE (22:08)
[2023-06-21 05:28] VITALS: BP 100/58; PULSE 109; RESP 20; TEMP 99; O2SAT 98
[2023-06-21 06:17] LABS: Basophils # (auto) 0.1 10 ^3/uL (0-0.2); Eosinophils # (auto) 0.3 10 ^3/uL (0-0.8); Hemoglobin 7.3 g/dL (13.5-17.5); Lymphocytes # (auto) 0.9 10 ^3/uL (0.4-5.4); Neutrophils # (auto) 13.9 10 ^3/uL (1.6-8.6)
[2023-06-21 06:18] LABS: Basophils % (auto) 0.4 % (0.0-2.0); Eosinophils % (auto) 1.9 % (0.0-7.0); Hematocrit 23.5 % (41.0-53.0); Lymphocytes % (auto) 5.2 % (10.0-50.0); Mean Corpuscular Hemoglobin 28.5 pg (28.0-32.0); Mean Corpuscular Hgb Conc. 31.2 g/dL (32.0-36.0); Mean Corpuscular Volume 91.4 fL (80.0-100.0); Monocytes # (auto) 1.6 10 ^3/uL (0-1.3); Monocytes % (auto) 9.3 % (0.0-12.0); Neutrophils % (auto) 83.2 % (37.0-80.0); Red Blood Cells 2.57 10^6/uL (4.5-5.90); Red Cell Distribution Width 15.7 % (11.8-14.3); White Blood Cell 16.7 10^3/uL (4.4-10.8)
[2023-06-21 06:20] LABS: Chloride 98 mmol/L (98-107); Potassium 4.6 mmol/L (3.5-5.1)
[2023-06-21 06:21] LABS: Anion Gap 12 (5-15); Calcium 7.5 mg/dL (8.5-10.1); Carbon Dioxide 25 mmol/L (20-30)
[2023-06-21 06:26] LABS: BUN/Creatinine Ratio 5.8 (10.0-20.0); Glucose 101 mg/dL (74-106)
[2023-06-21 06:28] LABS: Blood Urea Nitrogen 49 mg/dL (9-23); Sodium 135 mmol/L (136-145)
[2023-06-21] MEDS ORDERED: SODIUM CHL 0.9% 1000 ML BAG XX ONE (07:00)
[2023-06-21 08:30] VITALS: BP 106/60; PULSE 96; RESP 20; TEMP 98.9; O2SAT 96
[2023-06-21] MEDS: SODIUM CHL 0.9% 1000 ML BAG XX ONE (08:41)
[2023-06-21 10:00] VITALS: O2SAT 96
[2023-06-21 13:31] VITALS: BP 109/62; PULSE 94; RESP 20; TEMP 98.8; O2SAT 97
[2023-06-21] MEDS ORDERED: EPOETIN ALFA-EPBX 4,000 UNIT/ML VIAL SC ONE (21:00)
== END 2023-06-21 14:00 | disposition hospice, home (50) | DRG 720 ==
LOC: ER 13:54 → EDBD 13:54 → ER 17:37 → TELE 18:01 → ICU WEST 21:40 → TELE-CENTR 05-26 10:55 → CENTRAL 06-12 15:11
PROVIDERS: ADMIT Nurse Practitioner Family; ATTEND Internal Medicine Pulmonary Disease
PROC: 5A1D70Z Performance of Urinary Filtration, Intermittent, Less than 6 Hours Per Day (ICD-10-PCS; 2023-05-24)
PROC: 5A1D70Z Performance of Urinary Filtration, Intermittent, Less than 6 Hours Per Day (ICD-10-PCS; 2023-05-25)
PROC: 5A1D70Z Performance of Urinary Filtration, Intermittent, Less than 6 Hours Per Day (ICD-10-PCS; 2023-05-26)
PROC: 02PYX3Z Removal of Infusion Device from Great Vessel, External Approach (ICD-10-PCS; principal; 2023-05-28 11:19)
PROC: 0JH63XZ Insertion of Tunneled Vascular Access Device into Chest Subcutaneous Tissue and Fascia, Percutaneous Approach (ICD-10-PCS; 2023-05-30)
PROC: 02H633Z Insertion of Infusion Device into Right Atrium, Percutaneous Approach (ICD-10-PCS; 2023-05-30)
PROC: B518ZZA Fluoroscopy of Superior Vena Cava, Guidance (ICD-10-PCS; 2023-05-30)
PROC: B548ZZA Ultrasonography of Superior Vena Cava, Guidance (ICD-10-PCS; 2023-05-30)
PROC: 5A1D70Z Performance of Urinary Filtration, Intermittent, Less than 6 Hours Per Day (ICD-10-PCS; 2023-06-02)
PROC: 5A1D70Z Performance of Urinary Filtration, Intermittent, Less than 6 Hours Per Day (ICD-10-PCS; 2023-06-04)
PROC: 5A1D70Z Performance of Urinary Filtration, Intermittent, Less than 6 Hours Per Day (ICD-10-PCS; 2023-06-06)
PROC: 5A1D70Z Performance of Urinary Filtration, Intermittent, Less than 6 Hours Per Day (ICD-10-PCS; 2023-06-08)
PROC: 5A1D70Z Performance of Urinary Filtration, Intermittent, Less than 6 Hours Per Day (ICD-10-PCS; 2023-06-11)
PROC: 5A1D70Z Performance of Urinary Filtration, Intermittent, Less than 6 Hours Per Day (ICD-10-PCS; 2023-06-17)
PROC: 06HY33Z Insertion of Infusion Device into Lower Vein, Percutaneous Approach (ICD-10-PCS; 2023-06-20)
PROC: B54BZZA Ultrasonography of Right Lower Extremity Veins, Guidance (ICD-10-PCS; 2023-06-20)
PROC: B51B1ZA Fluoroscopy of Right Lower Extremity Veins using Low Osmolar Contrast, Guidance (ICD-10-PCS; 2023-06-20)
PROC: 5A1D70Z Performance of Urinary Filtration, Intermittent, Less than 6 Hours Per Day (ICD-10-PCS; 2023-06-20)
DX: A41.9 Sepsis, unspecified organism (principal); J96.21 Acute and chronic respiratory failure with hypoxia; I33.0 Acute and subacute infective endocarditis; J12.82 Pneumonia due to coronavirus disease 2019; R65.21 Severe sepsis with septic shock; G93.41 Metabolic encephalopathy; U07.1 COVID-19; N18.6 End stage renal disease; T82.7XXA Infection and inflammatory reaction due to other cardiac and vascular devices, implants and grafts, initial encounter; D69.6 Thrombocytopenia, unspecified; E87.21 Acute metabolic acidosis; E87.1 Hypo-osmolality and hyponatremia; E87.5 Hyperkalemia; Y83.8 Other surgical procedures as the cause of abnormal reaction of the patient, or of later complication, without mention of misadventure at the time of the procedure; A49.02 Methicillin resistant Staphylococcus aureus infection, unspecified site; I21.A1 Myocardial infarction type 2; E66.01 Morbid (severe) obesity due to excess calories; D63.8 Anemia in other chronic diseases classified elsewhere; I44.7 Left bundle-branch block, unspecified; Z53.20 Procedure and treatment not carried out because of patient's decision for unspecified reasons; I48.20 Chronic atrial fibrillation, unspecified; L40.9 Psoriasis, unspecified; Y92.89 Other specified places as the place of occurrence of the external cause; Z91.158 Patient's noncompliance with renal dialysis for other reason; Z91.199 Patient's noncompliance with other medical treatment and regimen due to unspecified reason; Z99.2 Dependence on renal dialysis; Z89.512 Acquired absence of left leg below knee; Z89.511 Acquired absence of right leg below knee
CPT/HCPCS: 36415; 36558; 36600; 70450; 71045; 76937; 77001; 80048; 80053; 80061; 80202; 82040; 82140; 82728; 82805; 82962; 83036; 83540; 83550; 83605; 83735; 84100; 84484; 85007; 85025; 85027; 85379; 85610; 85730; 86706; 86850; 86900; 86901; 87040; 87070; 87075; 87077; 87081; 87147; 87186; 87205; 87340; 87426; 90935; 93005; 93306; 93926; 93970; 94640; 96365; 96367; 96368; 96375; 97110; 97163; 97530; 99152; 99291; C1894; C9113; G0378; J0131; J0712; J1100; J1642; J1815; J2250; J2405; J2543; J7060